=== PATIENT | male | born 1955 | race Caucasian/White ===

== ENCOUNTER → 2017-11-04 08:38 | Outpatient (CLI) | payer BC, SELFPAY ==
[2017-11-04 10:58] LABS: Anion Gap 9 (5-15); BUN 18 mg/dL (7-18); BUN/Creat Ratio 30.5 RATIO (10-20); Calcium,Total 8.6 mg/dL (8.5-10.1); Chloride 107 mmol/L (98-107); Creatinine, Serum 0.59 mg/dL (0.70-1.30); EST Glomerular Filtration Rate 148 mL/min (>60); Est Glom Filt Rate - Afr Amer 179 mL/min (>60); Glucose 101 mg/dL (74-106); Potassium 3.7 mmol/L (3.5-5.1); Sodium Level 140 mmol/L (136-145)
== END ==
PROVIDERS: Family Provider Family Medicine; PCP Family Medicine; Visit Provider Family Medicine
DX: I10 Essential (primary) hypertension (principal)
CPT/HCPCS: 36415; 80048

== ENCOUNTER → 2017-11-18 12:13 | Outpatient (CLI) | payer BC, SELFPAY | PROVIDERS: Family Provider Family Medicine; PCP Family Medicine; Visit Provider Podiatrist | DX: L97.512 Non-pressure chronic ulcer of other part of right foot with fat layer exposed (principal) | CPT/HCPCS: 87070; 87205 ==

== ENCOUNTER 2018-03-09 08:43 | Outpatient (RCR) | payer OTHER, SELFPAY ==
[2018-03-09 09:28] VITALS: BP 141/85; PULSE 69; RESP 18; TEMP 36.7; BMI 36.6
--- NOTE | 2018-03-09 13:48 | PCM.WC.HP ---
(1) Ulcer of right foot Status: Acute Current Visit: Yes Code(s): L97.519 - Non-pressure chronic ulcer of other part of right foot with unspecified severity (2) Idiopathic neuropathy Status: Acute Current Visit: Yes Code(s): G60.9 - Hereditary and idiopathic neuropathy, unspecified (3) Obesity Status: Acute Current Visit: Yes Code(s): E66.9 - Obesity, unspecified (4) Delayed wound healing Status: Acute Current Visit: Yes Code(s): T14.8XXD - Other injury of unspecified body region, subsequent encounter History of Present Illness Date of Service: 03/09/18 Chief Complaint: ulcer to right plantar hallux History of Wound: This 62-year-old male was referred to the wound healing center by Dr. Rivera for an ongoing ulcer to the right plantar hallux. He says he has been treated with offloading surgical shoes as well as offloading custom orthotics and daily Josette dressings. He says that he has noticed improvement each day and feels that the ulcer may actually be healed today. Patient said he Ardee had the appointment scheduled and figured that he might as well, and have the area checked out just in case. He denies any purulence to the area as well as any redness, swelling, or increase in warmth. The patient currently denies any feelings of nausea, vomiting, fever, chills. Past Medical History Surgical History: tonsillectomy Allergies/Adverse Reactions: Allergies No Known Allergies Allergy (Verified 10/05/15 10:22) Home Medications: Ambulatory Orders Medication Instructions Recorded Multivitamin [Daily Multiple 1 each PO DAILY 10/05/15 Vitamin] Aspirin E.C. [Ecotrin] 81 mg PO DAILY@0800 03/09/18 Cholecalciferol (Vitamin D3) 1,000 unit PO DAILY 03/09/18 [Vitamin D3] Lisinopril/Hydrochlorothiazide 1 each PO DAILY 03/09/18 [Zestoretic 20-25 mg Tablet] Metoprolol Tartrate 25 mg PO BID 03/09/18 - Family History Sibling No pertinent history Maternal Diabetes, Heart Disease - age 74 Paternal Heart Disease - age 83 Smoking Status: Former smoker Review of Systems Constitutional: Denies: Chills, Fever, Weight Change HEENT: Denies: Difficulty Hearing, Difficulty Swallowing, Sinus Congestion Cardiovascular: Denies: Chest Pain, Palpitations Respiratory: Denies: Cough, Shortness of Breath Gastrointestinal: Denies: Diarrhea, Nausea, Vomiting Neurological: Reports: Numbness - Physical Exam Vital Signs Temp Pulse Resp BP 98.0 F 69 18 141/85 H 03/09/18 09:28 03/09/18 09:28 03/09/18 09:28 03/09/18 09:28 General: Alert, Oriented x3, Cooperative, No apparent distress Extremities: No cyanosis, Capillary Refill Less than 3 Seconds, No Calf Tenderness - Negative Siomara and Ibarra sign, Diminished Peripheral Pulses - DP pulses palpable and PT pulses nonpalpable, Edema - Very slight lower extremity edema, - - Lower extremity varicosities noted Skin: Ulcer/ Wound - Hyperkeratotic tissue appreciated the right plantar hallux. Upon debridement, there is no open ulcer appreciated at this time. There is no surrounding cellulitis, increasing warmth, or any other signs or symptoms of local bacterial infection appreciated at this time. Currently the site appears healed. Wound Measurements and Assessment WC - Nurse 1 - General Ulcer Measurement Start: 03/09/18 09:19 Freq: Status: Active Protocol: Activity Type Activity Date Activity User E-Sign Co-Sign Detail Recorded Client Recorded Date Recorded By Document 03/09/18 09:28 [id number] 03/09/18 09:58 03/09/18 09:28 Wound Center Nurse 1 [Ulcer Assessment] #3 right plantar great toe -Combined with other wound No -Current Size (cm) - Length 0.1 -Current Size (cm) - Width 0.1 -Current Size (cm) - Depth 0.1 -Total Square Cm 0.01 -Date of Last Picture (Recall this 03/09/18 field) -Photo Taken Yes -Epithelialization Large 67-100% -Tunneling No -Undermining/Tunneling No -Circular Undermining No -Classification - Thickness Partial Thickness -Exudate Amt None Present (0 %) -Wound Margin Distinct, Outline Attached -Granulation Amt Large (67-100%) -Granulation Quality Pale [place] -Slough/Fibrin No -Necrosis Amt None Present (0 %) -Structure Exposed None/Limited to Skin Breakdown -Texture (Roz-wound Skin Appearance) Assessed Callus Scarring -Moisture (Roz-wound Skin Appearance Assessed ) Dry/Scaly -Color (Roz-wound Skin Appearance) No Abnormality Assessed -Temperature (Roz-wound Skin No Abnormality Appearance) (Pt Warm) -Tenderness on Palpation (Roz-wound No Skin Appearance) -Ulcer Cleansing Rinsed/ Irrigated with Saline -Foul Odor after Cleansing No -Anesthetic Used 5% Lidocaine Gel [Edema Assessment] -Lower Limb Edema Present Yes -Right Calf (cm) 35.5 -Right Ankle (cm) 24.0 -Left Calf (cm) 34.0 -Left Ankle (cm) 22.5 - Nurse 2 - General Ulcer CM Notes Start: 03/09/18 09:19 Freq: Status: Active Protocol: Activity Type Activity Date Activity User E-Sign Co-Sign Detail Recorded Client Recorded Date Recorded By Document 03/09/18 10:38 [id number] 03/09/18 10:45 03/09/18 10:38 Wound Center Nurse 2 [Procedure/Treatment] #3 right plantar great toe -Time 10:38 -Correct Patient Yes -Correct Side, Site, Position Yes -Correct Procedure Yes -Procedure Performed Yes -Type of Procedure Debridement -Clinical Debridement Subcutaneous -Post Debridement Size (cm) - Length 0 -Post Debridement Size (cm) - Width 0 -Post Debridement Size (cm) - Depth 0 -Total Square Cm 0 -Wound/Ulcer Outcome Healed- Epithelialized [See Physician Procedure note for Specifics] Pain Scale: 0-10 Numeric [Pain] -Is Patient Pain Free? Yes Musculoskeletal: - - Previous right second toe amputation. Hammertoe deformities to bilateral digits 2 through 5. Bilateral hallux malleus. Neurological: - - Epicritic sensation grossly absent to lower extremity. Psych/Mental Status: Normal Affect, Appropriate Debridement Note Post-Debridement Measurements/Treatment - Nurse 2 - General Ulcer CM Notes Start: 03/09/18 09:19 Freq: Status: Active Protocol: Activity Type Activity Date Activity User E-Sign Co-Sign Detail Recorded Client Recorded Date Recorded By Document 03/09/18 10:38 [id number] 03/09/18 10:45 03/09/18 10:38 Wound Center Nurse 2 #3 right plantar great toe -Time 10:38 -Correct Patient Yes -Correct Side, Site, Position Yes -Correct Procedure Yes -Procedure Performed Yes -Type of Procedure Debridement -Clinical Debridement Subcutaneous -Post Debridement Size (cm) - Length 0 -Post Debridement Size (cm) - Width 0 -Post Debridement Size (cm) - Depth 0 -Total Square Cm 0 -Wound/Ulcer Outcome Healed- Epithelialized Pain Scale: 0-10 Numeric Is Patient Pain Free? Yes No debridement was completed today Assessment/Plan Active Problems Idiopathic neuropathy (Acute) Ulcer of right foot (Acute) Obesity (Acute) Delayed wound healing (Acute) Plan: Initial patient examination and evaluation was performed. A mild non-excisional debridement was completed at the hyperkeratotic tissue to the right plantar hallux. Upon debridement there is no ulcer appreciated or any other signs of infection noted. Patient currently appears to be healed at this time. Patient was instructed to continue wearing his offloading orthotics to keep pressure off of the area of previous ulcer. The importance of keeping pressure off of these areas was again stressed, especially because the patient has some idiopathic neuropathy. Patient was instructed and educated on the importance of daily foot checks due to his neuropathy, in order to catch any issues with his feet as soon as possible. At this time, the patient will be discharged from the wound healing center, but was instructed to call the office should any issues arise.
== END 2018-03-10 23:59 ==
LOC: WC 08:43
PROVIDERS: Family Provider Family Medicine; PCP Family Medicine; Visit Provider Podiatrist
DX: Z09 Encounter for follow-up examination after completed treatment for conditions other than malignant neoplasm (principal); L85.9 Epidermal thickening, unspecified; E66.9 Obesity, unspecified; Z68.36 Body mass index [BMI] 36.0-36.9, adult; Z71.3 Dietary counseling and surveillance; G60.9 Hereditary and idiopathic neuropathy, unspecified; M20.42 Other hammer toe(s) (acquired), left foot; M20.41 Other hammer toe(s) (acquired), right foot; Z87.891 Personal history of nicotine dependence; R09.89 Other specified symptoms and signs involving the circulatory and respiratory systems; I83.93 Asymptomatic varicose veins of bilateral lower extremities
CPT/HCPCS: 11042; 99212; G0463

== ENCOUNTER → 2018-05-12 11:00 | Outpatient (CLI) | payer OTHER, SELFPAY ==
[2018-05-12 12:47] LABS: Anion Gap 7 (5-15); BUN 23 mg/dL (7-18); BUN/Creat Ratio 30.7 RATIO (10-20); Calcium,Total 8.8 mg/dL (8.5-10.1); Chloride 105 mmol/L (98-107); Cholesterol 165 mg/dL (200); Creatinine, Serum 0.75 mg/dL (0.70-1.30); EST Glomerular Filtration Rate 112 mL/min (>60); Est Glom Filt Rate - Afr Amer 136 mL/min (>60); Glucose 98 mg/dL (74-106); High Density Lipoprotein 34 mg/dL; Potassium 3.8 mmol/L (3.5-5.1); Sodium Level 139 mmol/L (136-145); Triglycerides 192 mg/dL; Very Low Density Lipoprotein 38 mg/dL (5-40)
== END ==
PROVIDERS: Family Provider Family Medicine; PCP Family Medicine; Visit Provider Family Medicine
DX: I10 Essential (primary) hypertension (principal)
CPT/HCPCS: 36415; 80048; 80061

== ENCOUNTER → 2018-11-09 | Outpatient (CLI) | payer OTHER, SELFPAY ==
[2018-11-09 10:39] LABS: Anion Gap 4 (5-15); BUN 20 mg/dL (7-18); BUN/Creat Ratio 29.6 RATIO (10-20); Calcium,Total 8.8 mg/dL (8.5-10.1); Chloride 102 mmol/L (98-107); Cholesterol 192 mg/dL (200); Creatinine, Serum 0.68 mg/dL (0.70-1.30); EST Glomerular Filtration Rate 126 mL/min (>60); Est Glom Filt Rate - Afr Amer 153 mL/min (>60); Glucose 86 mg/dL (74-106); High Density Lipoprotein 39 mg/dL; Sodium Level 137 mmol/L (136-145); Triglycerides 143 mg/dL; Very Low Density Lipoprotein 29 mg/dL (5-40)
== END | disposition home or self-care (01) ==
LOC: MFPLAB 09:10
PROVIDERS: Family Provider Family Medicine; PCP Family Medicine; Referring Provider Family Medicine; Visit Provider Family Medicine
DX: I10 Essential (primary) hypertension (principal)
CPT/HCPCS: 36415; 80048; 80061

== ENCOUNTER → 2019-05-14 09:01 | Outpatient (CLI) | payer OTHER, SELFPAY ==
[2019-05-14 11:01] LABS: Anion Gap 7 (5-15); BUN 27 mg/dL (7-18); BUN/Creat Ratio 38.6 RATIO (10-20); Calcium,Total 8.8 mg/dL (8.5-10.1); Chloride 103 mmol/L (98-107); EST Glomerular Filtration Rate 121 mL/min (>60); Est Glom Filt Rate - Afr Amer 147 mL/min (>60); Glucose 100 mg/dL (74-106); Potassium 3.8 mmol/L (3.5-5.1); Sodium Level 136 mmol/L (136-145)
== END ==
PROVIDERS: Family Provider Family Medicine; PCP Family Medicine; Visit Provider Family Medicine
DX: I10 Essential (primary) hypertension (principal); E66.9 Obesity, unspecified
CPT/HCPCS: 36415; 80048; 84403

== ENCOUNTER → 2019-08-15 09:01 | Outpatient (CLI) | payer OTHER, SELFPAY ==
[2019-08-15 10:29] LABS: Cholesterol 168 mg/dL (200); High Density Lipoprotein 38 mg/dL; Triglycerides 91 mg/dL; Very Low Density Lipoprotein 18 mg/dL (5-40)
== END ==
PROVIDERS: PCP Family Medicine; Referring Provider Family Medicine; Visit Provider Family Medicine
DX: I10 Essential (primary) hypertension (principal)
CPT/HCPCS: 36415; 80061

== ENCOUNTER → 2020-02-13 08:45 | Outpatient (CLI) | payer OTHER, SELFPAY ==
[2020-02-13 10:28] LABS: Anion Gap 6 (5-15); BUN 41 mg/dL (7-18); Calcium,Total 8.9 mg/dL (8.5-10.1); Chloride 106 mmol/L (98-107); EST Glomerular Filtration Rate 80 mL/min (>60); Est Glom Filt Rate - Afr Amer 97 mL/min (>60); Glucose 105 mg/dL (74-106); Potassium 4.1 mmol/L (3.5-5.1); Sodium Level 139 mmol/L (136-145)
== END ==
PROVIDERS: PCP Family Medicine; Referring Provider Family Medicine; Visit Provider Family Medicine
DX: I10 Essential (primary) hypertension (principal)
CPT/HCPCS: 36415; 80048

== ENCOUNTER → 2020-03-21 | Outpatient (CLI) | payer OTHER, SELFPAY | END | disposition home or self-care (01) | PROVIDERS: PCP Family Medicine; Referring Provider Family Medicine; Visit Provider Family Medicine | DX: R50.9 Fever, unspecified (principal) | CPT/HCPCS: 87635; U0003 ==

== ENCOUNTER → 2020-08-13 08:48 | Outpatient (CLI) | payer OTHER, SELFPAY ==
[2020-08-13 11:35] LABS: Anion Gap 8 (5-15); BUN 34 mg/dL (7-18); BUN/Creat Ratio 41.1 RATIO (10-20); Calcium,Total 9.3 mg/dL (8.5-10.1); Chloride 106 mmol/L (98-107); Cholesterol 193 mg/dL (200); Creatinine, Serum 0.83 mg/dL (0.70-1.30); EST Glomerular Filtration Rate 99 mL/min (>60); Est Glom Filt Rate - Afr Amer 120 mL/min (>60); Glucose 96 mg/dL (74-106); High Density Lipoprotein 41 mg/dL; Potassium 4.2 mmol/L (3.5-5.1); Sodium Level 138 mmol/L (136-145); Triglycerides 108 mg/dL; Very Low Density Lipoprotein 22 mg/dL (5-40)
== END ==
PROVIDERS: PCP Family Medicine; Referring Provider Family Medicine; Visit Provider Family Medicine
DX: I10 Essential (primary) hypertension (principal)
CPT/HCPCS: 36415; 80048; 80061

== ENCOUNTER 2020-11-05 10:30 | Outpatient (RCR) | payer OTHER, SELFPAY ==
[2020-10-15 10:15] VITALS: BP 149/81; PULSE 72; RESP 18; TEMP 36.7; BMI 35.9
[2020-10-15 11:18] VITALS: BP 150/80
--- NOTE | 2020-10-15 11:30 | HP.PCM_ITS ---
(1) Ulcer of right foot with fat layer exposed Status: Chronic Code(s): L97.512 - Non-pressure chronic ulcer of other part of right foot with fat layer exposed (2) Idiopathic neuropathy Status: Chronic Code(s): G60.9 - Hereditary and idiopathic neuropathy, unspecified (3) Delayed wound healing Status: Chronic Code(s): T14.8XXD - Other injury of unspecified body region, subsequent encounter History of Present Illness Date of Service: 10/15/20 Chief Complaint: ulcer to right plantar hallux History of Wound: This 62-year-old male was referred to the wound healing center by Dr. Rivera for an ongoing ulcer to the right foot. He says he has been treated with offloading surgical shoes as well as offloading custom orthotics and daily Josette dressings. He says that he has noticed improvement each day and feels that the ulcer may actually be healed today. He denies any purulence to the area as well as any redness, swelling, or increase in warmth. The patient currently denies any feelings of nausea, vomiting, fever, chills. He denies recent trauma or injury. Past Medical History Past Medical History: Chronic Problems Idiopathic neuropathy (Chronic) Delayed wound healing (Chronic) Ulcer of right foot with fat layer exposed (Chronic) Surgical History: tonsillectomy Allergies/Adverse Reactions: Allergies No Known Allergies Allergy (Verified 10/05/15 10:22) Home Medications: Ambulatory Orders Medication Instructions Recorded Multivitamin [Daily Multiple 1 each PO DAILY 10/05/15 Vitamin] Aspirin E.C. [Ecotrin] 81 mg PO DAILY@0800 03/09/18 Cholecalciferol (Vitamin D3) 1,000 unit PO DAILY 03/09/18 [Vitamin D3] Lisinopril/Hydrochlorothiazide 1 each PO DAILY 03/09/18 [Zestoretic 20-25 mg Tablet] Metoprolol Tartrate 25 mg PO BID 03/09/18 - Family History Sibling No pertinent history Maternal Diabetes, Heart Disease - age 74 Paternal Heart Disease - age 83 Smoking Status: Never smoker Review of Systems Constitutional: Denies: Chills, Fever Cardiovascular: Denies: Chest Pain, Claudication Gastrointestinal: Denies: Nausea, Vomiting Skin: Reports: Skin Changes, Wounds Neurological: Reports: Numbness Hematologic/ Lymphatic: Denies: Easy Bruising, Easy Bleeding, Hx of blood clot - Physical Exam Vital Signs Temp Pulse Resp BP 98.1 F 72 18 150/80 H 10/15/20 10:15 10/15/20 10:15 10/15/20 10:15 10/15/20 11:18 General: Alert, Oriented x3, Cooperative, No apparent distress HEENT: Atraumatic Extremities: No cyanosis, Capillary Refill Less than 3 Seconds, No Calf Tenderness, Diminished Peripheral Pulses, Edema - Mild Skin: Ulcer/ Wound - No purulence, erythema, streaking, odor, infection. No probing to deep structures. The adjacent skin is hairless and atrophic. Wound Measurements and Assessment WC - Nurse 1 - General Ulcer Measurement Start: 10/15/20 10:14 Freq: Status: Active Protocol: Activity Type Activity Date Activity User E-Sign Co-Sign Detail Recorded Client Recorded Date Recorded By Document 10/15/20 10:15 RB [id number] 10/15/20 10:29 RB 10/15/20 10:15 Wound Center Nurse 1 [Ulcer Assessment] 4. R foot plantar -Combined with other wound No -Current Size (cm) - Length 0.2 -Current Size (cm) - Width 0.2 -Current Size (cm) - Depth 0.5 -Total Square Cm 0.04 -Photo Taken Yes -Tunneling No -Undermining/Tunneling No -Circular Undermining No -Exudate Amt Small -Exudate Type Serosanguineous -Wound Margin Thickened -Granulation Amt Medium (34-66%) -Granulation Quality [place] -Slough/Fibrin Yes -Necrosis Amt Small (1-33%) -Necrotic Tissue Type Adherent Slough -Structure Exposed N/A -Texture (Roz-wound Skin Appearance) Assessed,Callus -Moisture (Roz-wound Skin Appearance Assessed ) -Color (Roz-wound Skin Appearance) Assessed -Temperature (Roz-wound Skin No Abnormality Appearance) (Pt Warm) -Tenderness on Palpation (Roz-wound No Skin Appearance) -Ulcer Cleansing Wound Cleanser -Foul Odor after Cleansing No -Anesthetic Used 5% Lidocaine Gel [Edema Assessment] -Lower Limb Edema Present Yes -Right Calf (cm) 33.5 -Right Ankle (cm) 24 -Left Calf (cm) 33 -Left Ankle (cm) 23 WC - Nurse 2 - General Ulcer CM Notes Start: 10/15/20 10:14 Freq: Status: Active Protocol: Activity Type Activity Date Activity User E-Sign Co-Sign Detail Recorded Client Recorded Date Recorded By Document 10/15/20 10:43 [id number] 10/15/20 10:55 [email or web address] 10/15/20 10:43 Wound Center Nurse 2 [Procedure/Treatment] 4. R foot plantar -Time 10:44 -Correct Patient Yes -Correct Side, Site, Position Yes -Correct Procedure Yes -Procedure Performed Yes -Type of Procedure Debridement -Clinical Debridement Subcutaneous -Tissue Removed Subcutaneous -Post Debridement (cm) - Length 0.5 -Post Debridement (cm) - Width 0.7 -Post Debridement (cm) - Depth 0.4 -Total Square (Post) (cm) 0.35 -Area of Debridement (cm) - Length 0.5 -Area of Debridement (cm) - Width 0.7 -Total Square (Area) (cm) 0.35 -Tunneling No -Undermining/Tunneling No -Circular Undermining No -Wound/Ulcer Outcome Not Healed -Ulcer Cleansing Rinsed/ Irrigated with Saline -Foul Odor after Cleansing No -Bioengineered Tissue No -Bleeding Controlled with Pressure -Offloading Yes -Type of Offloading Surgical Shoe -Treatment Response Procedure Tolerated Well -Debridement - Subq, 1st 20sq cm Yes [See Physician Procedure note for Specifics] Pain Scale: 0-10 Numeric [Pain] -Is Patient Pain Free? Yes WC - Nurse 3 - General Ulcer D/C NN Start: 10/15/20 10:14 Freq: Status: Active Protocol: Activity Type Activity Date Activity User E-Sign Co-Sign Detail Recorded Client Recorded Date Recorded By Document 10/15/20 11:18 [id number] 10/15/20 11:19 RB 10/15/20 11:18 Wound Care Nurse 3 [Wound Dressing] 4. R foot plantar -Primary Dressing Applied Promogran Josette Matter -Primary Dressing Covered/Secured Dry Gauze, with Secured with Tape -Promogran Josette Matter 1 [Compression Applied] Right -Lotion applied to leg before No compression wrap -Tubular Bandage Single Layer -Size of Tubigrip Used Size E -Size E ($) 1 [Post Procedure Tolerated] -Treatment Response Procedure Tolerated Well Vital Signs [Blood Pressure] -Blood Pressure (90/60-120/80) 150/80 H -Blood Pressure Mean (mm Hg) 103 -Source Monitor -Position Sitting -Blood Pressure Location Left Arm Pain Scale: 0-10 Numeric [Pain] -Is Patient Pain Free? Yes Teaching: Wound Center [Wound Center Education] (Items with an * have Printed Materials Available- Please identify what is given to patient under the Teaching materials given to patient and caregiver Section. Dressing Your Wound -Person Taught Patient -Teaching Method Discussion, Demonstration -Response to teaching Verbalize understanding WC - Visit Discharge [Visit Discharge Information] -Discharge Condition Stable -Ambulatory Status Ambulatory -Transportation Private Auto -Medication Reconcilliation completed No & provided to patient/care provider -Clinical Summary of Care Provided Yes Musculoskeletal: Muscle Wasting, - - Decreased noted first metatarsophalangeal joint range of motion. No crepitus on palpation. Compartments remain soft to palpate. Neurological: - - Lack of epicritic sensation is consistent with neuropathic status Psych/Mental Status: Normal Affect, Appropriate Debridement Note Post-Debridement Measurements/Treatment - Nurse 2 - General Ulcer CM Notes Start: 10/15/20 10:14 Freq: Status: Active Protocol: Activity Type Activity Date Activity User E-Sign Co-Sign Detail Recorded Client Recorded Date Recorded By Document 10/15/20 10:43 [email or web address] [id number] 10/15/20 10:55 [email or web address] 10/15/20 10:43 Wound Center Nurse 2 4. R foot plantar -Time 10:44 -Correct Patient Yes -Correct Side, Site, Position Yes -Correct Procedure Yes -Procedure Performed Yes -Type of Procedure Debridement -Clinical Debridement Subcutaneous -Tissue Removed Subcutaneous -Post Debridement (cm) - Length 0.5 -Post Debridement (cm) - Width 0.7 -Post Debridement (cm) - Depth 0.4 -Total Square (Post) (cm) 0.35 -Area of Debridement (cm) - Length 0.5 -Area of Debridement (cm) - Width 0.7 -Total Square (Area) (cm) 0.35 -Tunneling No -Undermining/Tunneling No -Circular Undermining No -Wound/Ulcer Outcome Not Healed -Ulcer Cleansing Rinsed/ Irrigated with Saline -Foul Odor after Cleansing No -Bioengineered Tissue No -Bleeding Controlled with Pressure -Offloading Yes -Type of Offloading Surgical Shoe -Treatment Response Procedure Tolerated Well -Debridement - Subq, 1st 20sq cm Yes Pain Scale: 0-10 Numeric Is Patient Pain Free? Yes - Nurse 3 - General Ulcer D/C NN Start: 10/15/20 10:14 Freq: Status: Active Protocol: Activity Type Activity Date Activity User E-Sign Co-Sign Detail Recorded Client Recorded Date Recorded By Document 10/15/20 11:18 RB [id number] 10/15/20 11:19 RB 10/15/20 11:18 Wound Care Nurse 3 4. R foot plantar -Primary Dressing Applied Promogran Josette Matter -Primary Dressing Covered/Secured with Dry Gauze, Secured with Tape -Promogran Josette Matter 1 Right -Lotion applied to leg before No compression wrap -Tubular Bandage Single Layer -Size of Tubigrip Used Size E -Size E ($) 1 Treatment Response Procedure Tolerated Well Vital Signs Blood Pressure (90/60-120/80) 150/80 H Blood Pressure Mean (mm Hg) 103 Source Monitor Position Sitting Blood Pressure Location Left Arm Pain Scale: 0-10 Numeric Is Patient Pain Free? Yes Teaching: Wound Center Dressing Your Wound -Person Taught Patient -Teaching Method Discussion, Demonstration -Response to teaching Verbalize understanding WC - Visit Discharge Discharge Condition Stable Ambulatory Status Ambulatory Transportation Private Auto Medication Reconcilliation completed & No provided to patient/care provider Clinical Summary of Care Provided Yes Wound debrided: sub 1st metatarsal head Laterality: Right Wound Grade/Stage: grade 1 Type of Debridement: Excisional debridement Anesthesia Used: 5% Lidocaine Gel Depth: in the subcutaneous layer Instrument Used: #15 blade Tissue Removed: fibrous, devitalized subcutaneous, biofilm, slough Severity: Fat Layer Exposed Amount of bleeding with debridement: Mild Bleeding Controlled with: Pressure Patient tolerated procedure well Assessment/Plan Active Problems Idiopathic neuropathy (Chronic) Delayed wound healing (Chronic) Ulcer of right foot with fat layer exposed (Chronic) Assessment: Right foot ulcer with fat layer exposed. Hallux limitus. Vascular insufficiency work-up in process Plan: Initial patient examination and evaluation was performed. Reviewed the ordered diagnostic data after clinic. Subcutaneous excisional debridement was performed as noted in the clinical panel. upon debridement there is no ulcer appreciated or any other signs of infection noted. Patient was instructed to continue wearing his offloading cam walker boot instead of offloading insoles or surgical shoe to take additional pressure off of this site. A prescription was provided to obtain this at the foot and ankle center. Additional dual density Plastizote offloading liners with a pocket at the ulcer site will be incorporated. The importance of keeping pressure off of these areas was again stressed, especially because the patient has some idiopathic neuropathy. Patient was instructed and educated on the importance of daily foot checks due to his neuropathy, in order to catch any issues with his feet as soon as possible. To change the dressing daily as he has been doing. To wash with soap and water. X-rays were ordered and reviewed without any osseous destruction or acute fracture dislocation adjacent to the ulcer site. No soft tissue emphysema is noted. There is foreign body of a thin metallic object which does not appear to be deep in the forefoot and is proximal to the clinical area of the ulcer location. His labs were also reviewed which did not demonstrate any gross CMP abnormalities. He did not have leukocytosis and his white blood cell count was 7.9. His A1c was 5.2% and it does not appear that he has diabetes. I also provided an order for noninvasive vascular studies for screening due to recurrent nature of this ulcer. I also recommend Tubigrip application for mild edema management. Importance of well-balanced proper nutrition and supplementation was also advised to optimize healing. I recommend Maurilio supplementation. I answered all his questions. He will return to clinic in 1 week or call sooner if he has any questions or concerns. Note: Document Agility speech recognition bat carrier software was used to create portions of this document. Sound-alike and misspelled words, as well as other bat carrier errors may be contained in the documentation. The medical decision making level is moderate based on data including at least three of the following: review of prior external notes, review of a test, ordering a test, assessment requiring an independent historian. The medical decision making level is moderate based on data including independent interpretation of a test performed by another qualified health healthcare network pricing consultant. The medical decision making level is moderate. There is noted moderate risk of morbidity after considering this treatment plan and diagnostic data. Considerations were given to prescription management, decisions regarding surgical options, or social determinants of health.
--- NOTE | 2020-10-15 11:50 | RAD_ITS ---
INDICATION: CHRONIC ULCER EXAMINATION/TECHNIQUE: X-RAY - RIGHT XR Foot Min 3 Views COMPARISON: 10/05/2015. FINDINGS: There is a plantar calcaneal spur. There is pes planus. Moderate degenerative changes are seen within the midfoot. There is degenerative arthrosis of the interphalangeal joint of the great toe. Status post partial second toe amputation. No erosions. There is a 2-3 mm metallic density within the plantar soft tissues beneath the first metatarsal, suggesting a retained foreign body. RAD/Foot min 3 Views IMPRESSION: Status post partial second toe amputation. No erosive changes. 2-3 mm retained soft tissue foreign body along the plantar aspect of the foot. Degenerative changes, as described above. Electronically Signed: Billy Morocho MD at 20:06 EDT Tel , Service support ,
[2020-10-15 11:53] LABS: Absolute Lymphocyte Count 1.37 X10^3/uL (0.83-4.51); Absolute Neutrophil Count 5.3 X10^3/uL (2.0-7.7); Basophil# 0.03 X10^3/uL; Basophil% 0.4 % (0-1); Eosinophil# 0.41 X10^3/uL; Eosinophils% 5.2 % (0-5); Hematocrit 43.6 % (40-54); Hemoglobin 14.3 g/dL (13.0-16.5); Lymphocyte # 1.37 X10^3/ul (4.0); Lymphocyte % 17.4 % (19-41); Mean Corp Hgb Conc 32.8 g/dL (32-36); Mean Corpuscular Hgb 31.8 pg (27.0-32.0); Mean Corpuscular Volume 96.9 fL (80-94); Mean Platelet Vol. 9.9 fl (6.2-12.0); Monocyte# 0.75 X10^3/uL; Monocyte% 9.5 % (0-10); NRBC Flagged by Analyzer 0 % (0-5); Neutrophil # 5.28 X10^3/uL (2.7-7.7); Platelet Count 216 K/mm3 (150-450); RBC Distribution Width CV 12.8 % (11.6-14.6); RBC Distribution Width SD 45.3 fl (35.1-43.9); White Blood Count 7.9 K/mm3 (4.4-11.0)
[2020-10-15 12:30] LABS: AST(SGOT) 21 U/L (15-37); Alanine Aminotransfer ALT/SGPT 38 U/L (16-61); Albumin, Serum 3.6 g/dL (3.2-5.0); Alkaline Phosphatase 70 U/L (45-117); Anion Gap 2 (5-15); BUN 26 mg/dL (7-18); BUN/Creat Ratio 34.3 RATIO (10-20); Calcium,Total 8.9 mg/dL (8.5-10.1); Chloride 106 mmol/L (98-107); Creatinine, Serum 0.76 mg/dL (0.70-1.30); EST Glomerular Filtration Rate 110 mL/min (>60); Est Glom Filt Rate - Afr Amer 133 mL/min (>60); Estimated Creatinine Clearance 101.39 ml/min; Globulin 3.7 g/dL (2.2-4.2); Glucose 105 mg/dL (74-106); Protein, Total 7.3 g/dL (6.4-8.2); Sodium Level 137 mmol/L (136-145)
[2020-10-15 12:45] LABS: Hemoglobin A1c 5.2 % (3.8-5.6)
--- NOTE | 2020-10-27 12:39 | ART_ITS ---
Procedure A bilateral lower extremity continuous wave Doppler with analog waveform analysis,segmental pressures,and ankle brachial indexes without exercise. Left Segmental Pressures Left brachial= 132mmHg. Left posterior tibial artery = 157mmHg. Left dorsalis pedis artery = 154mmHg. Left digit = 93 mmHg. The left dorsalis pedis waveforms are triphasic. The left posterior tibial artery waveforms are triphasic. Right Segmental Pressures Right brachial= 143mmHg. Right posterior tibial artery = 148mmHg. Right dorsalis pedis artery = 146mmHg. Right digit = 99 mmHg. The right dorsalis pedis waveforms are triphasic. The right posterior tibial artery waveforms are triphasic. Indices The right ankle brachial index by the dorsalis pedis is 1.02. The right ankle brachial index by the posterior tibial artery is 1.03. The right digital-brachial index is 0.69. The left ankle brachial index by the dorsalis pedis is 1.08. The left ankle brachial index by the posterior tibial artery is 1.10. The left digital-brachial index is 0.65. VL/Lower Ext Art Exam w/o Exercis Interpretation Summary Triphasic Doppler waveforms are noted at ankle level bilaterally. Pulse-volume recordings appear satisfactory at all levels bilaterally. Resting ankle-brachial indices are norm al biaterally. Digital-brachial indices are mildly diminished bilaterally. Arterial flow appears normal at ankle level bilaterally. There is evidence of m ild, distal, small- vessel arterial occlusive disease in the lower extremities bilaterally. Ordering Physician: Carolina Roblero Referring Physician: Obey Wagner Performed By: Bernadette Pitts RVT
--- NOTE | 2020-10-27 12:39 | VDLE_ITS ---
Reason For Study: Venous insufficiency RIGHT LEFT CFV is compressible, spontaneous, phasic, CFV is compressible, spontaneous, phasic, competent and demonstrates normal competent, and demonstrates normal augmentation. augmentation. FV is compressible, spontaneous, phasic, FV is compressible, spontaneous, phasic, competent and demonstrates normal competent and demonstrates normal augmentation. augmentation. POP V is compressible, spontaneous, phasic, POP V is compressible, spontaneous, phasic, competent and demonstrates normal competent and demonstrates normal augmentation. augmentation. T/P Trunk is compressible. T/P Trunk is compressible. PTV is compressible. PTV is compressible. RT PerV is compressible. LT PerV is compressible. SFJ is competent and measures 0.85 x 0.89 cm. SFJ is competent and measures 1.00 x 0.92 cm. GSV proximal thigh measures 0.42 x 0.42 cm. GSV proximal thigh measures 0.29 x 0.29 cm. GSV above knee is competent. GSV at knee measures 0.39 x 0.40 cm. GSV at knee measures 0.61 x 0.67 cm. GSV is competent throughout. GSV below knee is INCOMPETENT for greater ASV mid calf is INCOMPETENT for greater than than 0.5 seconds. 0.5 seconds and measures 0.17 x 0.19 cm. SSV proximal calf is competent and measures SSV at junction is INCOMPETENT for greater 0.16 x 0.16 cm. than 0.5 seconds and measures 0.42 x 0.44 cm. INCOMPETENT team assistant noted 19 cm above medial malleolus. Procedure This is a venous duplex using B-mode, color flow and spectral Doppler. Exam performed in department. Patient was scanned in reverse Trendelenburg position during reflux assessment. A preliminary report was called and/or faxed to . VL/Venous Duplex US - Sebastian Extrem Interpretation Summary Deep veins of the lower extremities are bilaterally patent and compressible seg mentally. There is no evidence of deep vein thrombosis on either side. Valvular competence appears in tact within the proximal deep venous systems bilaterally. The great saphenous veins appear bila terally patent and compressible segmentally. Sapheno-femoral junctions are bilaterally competent . The right great saphenous vein appears competent above the knee. The right great saphenous vein appears incompetent below the knee. The left great saphenous vein appears segmentally competent. Th e right small saphenous vein is patent and competent. The left small saphenous vein is patent and incompetent. An incompetent team assistant vein is noted in the right calf, located 19 centimeters proximal to the medial malleolus. The left accessory saphenous vein in the left mid-calf is inc ompetent. Ordering Physician: Carolina Roblero Referring Physician: Obey Wagner Performed By: Bernadette Pitts RVT
[2020-10-29 10:54] VITALS: BP 145/72; PULSE 69; RESP 18; TEMP 36.6; BMI 35.9
--- NOTE | 2020-10-29 11:16 | PCM.WC.PN ---
(1) Ulcer of right foot with fat layer exposed Status: Chronic Code(s): L97.512 - Non-pressure chronic ulcer of other part of right foot with fat layer exposed (2) Idiopathic neuropathy Status: Chronic Code(s): G60.9 - Hereditary and idiopathic neuropathy, unspecified (3) Delayed wound healing Status: Chronic Code(s): T14.8XXD - Other injury of unspecified body region, subsequent encounter Type of Wound Date of Service: 10/29/20 Chief Complaint: ulcer to right plantar hallux History of Wound: This 62-year-old male was referred to the wound healing center by Dr. Rivera for an ongoing ulcer to the right foot. He says he has been treated with offloading surgical shoes as well as offloading custom orthotics and daily Josette dressings. He says that he has noticed improvement each day and feels that the ulcer may actually be healed today. He denies any purulence to the area as well as any redness, swelling, or increase in warmth. The patient currently denies any feelings of nausea, vomiting, fever, chills. Progress of Wound: improving - Physical Exam Vital Signs Temp Pulse Resp BP 98 F 69 18 145/72 H 10/29/20 10:54 10/29/20 10:54 10/29/20 10:54 10/29/20 10:54 General: Alert, Oriented x3, Cooperative, No apparent distress HEENT: Atraumatic Extremities: No cyanosis, Capillary Refill Less than 3 Seconds, No Calf Tenderness, Diminished Peripheral Pulses Skin: Ulcer/ Wound - No purulence, erythema, string, odor, infection. Adjacent skin is atrophic Wound Measurements and Assessment WC - Nurse 1 - General Ulcer Measurement Start: 10/15/20 10:14 Freq: Status: Active Protocol: Activity Type Activity Date Activity User E-Sign Co-Sign Detail Recorded Client Recorded Date Recorded By Document 10/29/20 10:54 RB [id number] 10/29/20 10:58 RB 10/29/20 10:54 Wound Center Nurse 1 [Ulcer Assessment] 4. R foot plantar -Combined with other wound No -Current Size (cm) - Length 0.1 -Current Size (cm) - Width 0.1 -Current Size (cm) - Depth 0.1 -Total Square Cm 0.01 -Tunneling No -Undermining/Tunneling No -Circular Undermining No -Exudate Amt Small -Exudate Type Serosanguineous -Wound Margin Flat & Intact -Granulation Amt Large (67-100%) -Granulation Quality [place] -Slough/Fibrin Yes -Necrosis Amt Small (1-33%) -Necrotic Tissue Type Adherent Slough -Structure Exposed N/A -Texture (Roz-wound Skin Appearance) Assessed,Callus -Moisture (Roz-wound Skin Appearance Assessed ) -Color (Roz-wound Skin Appearance) Assessed -Temperature (Roz-wound Skin No Abnormality Appearance) (Pt Warm) -Tenderness on Palpation (Roz-wound No Skin Appearance) -Ulcer Cleansing Wound Cleanser -Foul Odor after Cleansing No -Anesthetic Used 4% Lidocaine Solution Musculoskeletal: Muscle Wasting Neurological: - - Altered Psych/Mental Status: Normal Affect, Appropriate Debridement Note Post-Debridement Measurements/Treatment WC - Nurse 2 - General Ulcer CM Notes Start: 10/15/20 10:14 Freq: Status: Active Protocol: Activity Type Activity Date Activity User E-Sign Co-Sign Detail Recorded Client Recorded Date Recorded By Document 10/15/20 10:43 ALPHONSO [id number] 10/15/20 10:55 ALPHONSO 10/15/20 10:43 Wound Center Nurse 2 4. R foot plantar -Time 10:44 -Correct Patient Yes -Correct Side, Site, Position Yes -Correct Procedure Yes -Procedure Performed Yes -Type of Procedure Debridement -Clinical Debridement Subcutaneous -Tissue Removed Subcutaneous -Post Debridement (cm) - Length 0.5 -Post Debridement (cm) - Width 0.7 -Post Debridement (cm) - Depth 0.4 -Total Square (Post) (cm) 0.35 -Area of Debridement (cm) - Length 0.5 -Area of Debridement (cm) - Width 0.7 -Total Square (Area) (cm) 0.35 -Tunneling No -Undermining/Tunneling No -Circular Undermining No -Wound/Ulcer Outcome Not Healed -Ulcer Cleansing Rinsed/ Irrigated with Saline -Foul Odor after Cleansing No -Bioengineered Tissue No -Bleeding Controlled with Pressure -Offloading Yes -Type of Offloading Surgical Shoe -Treatment Response Procedure Tolerated Well -Debridement - Subq, 1st 20sq cm Yes Pain Scale: 0-10 Numeric Is Patient Pain Free? Yes - Nurse 3 - General Ulcer D/C NN Start: 10/15/20 10:14 Freq: Status: Active Protocol: Activity Type Activity Date Activity User E-Sign Co-Sign Detail Recorded Client Recorded Date Recorded By Document 10/15/20 11:18 RB [id number] 10/15/20 11:19 RB 10/15/20 11:18 Wound Care Nurse 3 4. R foot plantar -Primary Dressing Applied Promogran Josette Matter -Primary Dressing Covered/Secured with Dry Gauze, Secured with Tape -Promogran Josette Matter 1 Right -Lotion applied to leg before No compression wrap -Tubular Bandage Single Layer -Size of Tubigrip Used Size E -Size E ($) 1 Treatment Response Procedure Tolerated Well Vital Signs Blood Pressure (90/60-120/80) 150/80 H Blood Pressure Mean (mm Hg) 103 Source Monitor Position Sitting Blood Pressure Location Left Arm Pain Scale: 0-10 Numeric Is Patient Pain Free? Yes Teaching: Wound Center Dressing Your Wound -Person Taught Patient -Teaching Method Discussion, Demonstration -Response to teaching Verbalize understanding WC - Visit Discharge Discharge Condition Stable Ambulatory Status Ambulatory Transportation Private Auto Medication Reconcilliation completed & No provided to patient/care provider Clinical Summary of Care Provided Yes Wound debrided: hallux Laterality: Right Type of Debridement: Excisional debridement Anesthesia Used: 5% Lidocaine Gel Depth: in the subcutaneous layer Percentage of wound debrided: 100 Instrument Used: #15 blade Tissue Removed: fibrous, devitalized subcutaneous, biofilm, slough Severity: Fat Layer Exposed Amount of bleeding with debridement: Mild Bleeding Controlled with: Pressure Patient tolerated procedure well Assessment/Plan Clinical Impression(s) from Imaging Studies Foot X-Ray 10/15/20 11:50 IMPRESSION: Status post partial second toe amputation. No erosive changes. 2-3 mm retained soft tissue foreign body along the plantar aspect of the foot. Degenerative changes, as described above. Electronically Signed: Billy Morocho MD at 20:06 EDT Tel , Service support , Extremity Arterial Study 10/27/20 12:39 Interpretation Summary Triphasic Doppler waveforms are noted at ankle level bilaterally. Pulse-volume recordings appear satisfactory at all levels bilaterally. Resting ankle-brachial indices are normal biaterally. Digital-brachial indices are mildly diminished bilaterally. Arterial flow appears normal at ankle level bilaterally. There is evidence of mild, distal, small- vessel arterial occlusive disease in the lower extremities bilaterally. Ordering Physician: Carolina Roblero Referring Physician: Obey Wagner Performed By: Bernadette Pitts RVT Venous Doppler Study 10/27/20 12:39 Interpretation Summary Deep veins of the lower extremities are bilaterally patent and compressible segmentally. There is no evidence of deep vein thrombosis on either side. Valvular competence appears intact within the proximal deep venous systems bilaterally. The great saphenous veins appear bilaterally patent and compressible segmentally. Sapheno-femoral junctions are bilaterally competent . The right great saphenous vein appears competent above the knee. The right great saphenous vein appears incompetent below the knee. The left great saphenous vein appears segmentally competent. The right small saphenous vein is patent and competent. The left small saphenous vein is patent and incompetent. An incompetent finishing operator vein is noted in the right calf, located 19 centimeters proximal to the medial malleolus. The left accessory saphenous vein in the left mid-calf is incompetent. Ordering Physician: Carolina Roblero Referring Physician: Obey Wagner Performed By: Bernadette Pitts RVT Active Problems Idiopathic neuropathy (Chronic) Delayed wound healing (Chronic) Ulcer of right foot with fat layer exposed (Chronic) Assessment: Right foot ulcer with fat layer exposed. Hallux limitus. Vascular insufficiency work-up in process Plan: I reviewed his case. Reviewed the ordered diagnostic data after clinic. Subcutaneous excisional debridement was performed as noted in the clinical panel. upon debridement there is no ulcer appreciated or any other signs of infection noted. Patient was instructed to continue wearing his offloading cam walker boot instead of offloading insoles or surgical shoe to take additional pressure off of this site. A prescription was previously provided to obtain this at the foot and ankle center. Additional dual density Plastizote offloading liners with a pocket at the ulcer site will be incorporated. The importance of keeping pressure off of these areas was again stressed, especially because the patient has some idiopathic neuropathy. Patient was instructed and educated on the importance of daily foot checks due to his neuropathy, in order to catch any issues with his feet as soon as possible. To change the dressing daily as he has been doing. To wash with soap and water. X-rays were ordered and reviewed without any osseous destruction or acute fracture dislocation adjacent to the ulcer site. No soft tissue emphysema is noted. There is foreign body of a thin metallic object which does not appear to be deep in the forefoot and is proximal to the clinical area of the ulcer location. His labs were also reviewed which did not demonstrate any gross CMP abnormalities. He did not have leukocytosis and his white blood cell count was 7.9. His A1c was 5.2% and it does not appear that he has diabetes. I also provided an order for noninvasive vascular studies for screening due to recurrent nature of this ulcer. He appears to have overall normal perfusion to the ankle level with some diminished digital indices suggesting small vessel disease. I recommend a vascular surgery referral to see if there are any intervention options available due to his continued delays in healing. I also recommend Tubigrip application for mild edema management. Importance of well-balanced proper nutrition and supplementation was also advised to optimize healing. I recommend Maurilio supplementation. I answered all his questions. He will return to clinic in 1 week or call sooner if he has any questions or concerns. Note: [employer] speech recognition design printer balloon software was used to create portions of this document. Sound-alike and misspelled words, as well as other design printer balloon errors may be contained in the documentation.
[2020-11-05 10:45] VITALS: BP 146/69; PULSE 73; RESP 20; TEMP 36.9; BMI 35.9
--- NOTE | 2020-11-05 16:01 | PCM.PROGNOTE ---
Subjective Subjective: This 64-year-old male is following up for right foot ulcer which is draining rash. He performed strict offloading. He thinks the top of his right great toe rubbed on and she has a new ulcer. He denies fever, chill, nausea, vomiting. She denies redness streaking, or odor. Objective Data Objective Data Vital Signs: Vital Signs Temp Pulse Resp BP 98.4 F 73 20 H 146/69 H 11/05/20 10:45 11/05/20 10:45 11/05/20 10:45 11/05/20 10:45 Weight: 113.398 kg Body Mass Index (BMI) 35.9 Finger Stick Blood Glucose 92 Lab / Micro Data Result Diagrams: 10/15/20 11:36 10/15/20 11:36 Physical Exam Const alert and oriented x3 General Appearance: cooperative HEENT normocephalic Extremity normal capillary refill Extremity Narrative: no cyanosis, no calf tenderness, diminished pulses muscle wasting noted. no tenderness. General Extremity: edema Skin Skin Narrative: no purulence, no erythema, no streaking, no odor, no infection. Adjacent skin is atrophic. New skin discontinuity dorsal hallux at the medial interphalangeal joint level with fibrous and granular base. Only subhemorrhagic tissue that exposed to the plantar foot ulcer and this is reduced in size and depth. Neuro Neuro Narrative: lack of normal epicritic sensation via light touch consistent with neuropathy Assessment & Plan Assessment/Plan (1) Ulcer of right foot with fat layer exposed: Status: Chronic Code(s): L97.512 - Non-pressure chronic ulcer of other part of right foot with fat layer exposed (2) Idiopathic neuropathy: Status: Chronic Code(s): G60.9 - Hereditary and idiopathic neuropathy, unspecified (3) Delayed wound healing: Status: Chronic Code(s): T14.8XXD - Other injury of unspecified body region, subsequent encounter (4) Hallux malleus of right foot: Status: Acute Code(s): M20.31 - Hallux varus (acquired), right foot Plan: Procedure- Location: dorsal right hallux (new) Excisional debridement performed Anesthesia: 5% lidocaine plain Debridement layer: subcutaneous Amount of debridement: 100% Instrumentation used: 15 blade Tissue debrided: fibrous, devitalized subcutaneous, biofilm, slough Exposed tissue: fat layer Bleeding: mild Hemostasis controlled: pressure The patient tolerated the procedure well Procedure- Location: plantar medial forefoot selective debridement performed Anesthesia: 5% lidocaine plain Debridement layer: skin layer only Amount of debridement: 100% Instrumentation used: 15 blade Tissue debrided: fibrous, devitalized subcutaneous, biofilm, slough Exposed tissue: fat layer Bleeding: mild Hemostasis controlled: pressure The patient tolerated the procedure well I reviewed and discussed his case.? Reviewed the ordered diagnostic data after clinic.? Subcutaneous excisional debridement was performed as noted in the clinical nursing panel; refer to nursing document for pre and post debridement measurements. Upon debridement there is no ulcer appreciated or any other signs of infection noted. Patient was instructed to continue wearing his offloading cam walker boot instead of offloading insoles or surgical shoe to take additional pressure off of this site.? Additional dual density Plastizote offloading liners with a pocket at the ulcer site will be incorporated.? He has a new ulcer and this was offloaded with a felt aperture pad. To monitor closely. The importance of keeping pressure off of these areas was again stressed, especially because the patient has some idiopathic neuropathy.? Patient was instructed and educated on the importance of daily foot checks due to his neuropathy, in order to catch any issues with his feet as soon as possible.? To change the dressing daily as he has been doing.? To wash with soap and water.? X-rays were ordered and reviewed without any osseous destruction or acute fracture dislocation adjacent to the ulcer site.? No soft tissue emphysema is noted.? There is foreign body of a thin metallic object which does not appear to be deep in the forefoot and is proximal to the clinical area of the ulcer location.? His labs were also reviewed which did not demonstrate any gross CMP abnormalities.? He did not have leukocytosis and his white blood cell count was 7.9.? His A1c was 5.2% and it does not appear that he has diabetes.? I also provided an order for noninvasive vascular studies for screening due to recurrent nature of this ulcer.? He appears to have overall normal perfusion to the ankle level with some diminished digital indices suggesting small vessel disease.? I recommend a vascular surgery referral to see if there are any intervention options available due to his continued delays in healing.? I also recommend Tubigrip application for mild edema management.? Importance of well-balanced proper nutrition and supplementation was also advised to optimize healing.? I recommend Maurilio supplementation.? I answered all his questions.? He will return to clinic in 1 week or call sooner if he has any questions or concerns.? Note: [employer] speech recognition director geophysical laboratory software was used to create portions of this document. Sound-alike and misspelled words, as well as other director geophysical laboratory errors may be contained in the documentation. The medical decision making level is low. There is noted low risk of morbidity after considering this treatment plan and diagnostic data. The problems addressed require a low medical decision making level which includes two or more minor problems, a stable chronic illness, or an acute uncomplicated illness or injury.
== END 2020-11-07 23:59 ==
LOC: WC 10:30
PROVIDERS: PCP Family Medicine; Referring Provider Podiatrist; Visit Provider Podiatrist
DX: I83.015 Varicose veins of right lower extremity with ulcer other part of foot (principal); L97.512 Non-pressure chronic ulcer of other part of right foot with fat layer exposed; M20.5X1 Other deformities of toe(s) (acquired), right foot; G60.9 Hereditary and idiopathic neuropathy, unspecified; I77.9 Disorder of arteries and arterioles, unspecified; I73.9 Peripheral vascular disease, unspecified; I87.2 Venous insufficiency (chronic) (peripheral); M20.31 Hallux varus (acquired), right foot; Z79.82 Long term (current) use of aspirin; Z79.899 Other long term (current) drug therapy
CPT/HCPCS: 11042; 36415; 73630; 80053; 83036; 85025; 93923; 93970; 97597; 99213; G0463

== ENCOUNTER 2020-11-26 08:45 | Outpatient (RCR) | payer MEDICARE, SELFPAY ==
[2020-11-08 00:15] VITALS: BP 146/69; PULSE 73; RESP 20; TEMP 36.9
[2020-11-12 11:23] VITALS: BP 133/64; PULSE 66; RESP 18; TEMP 36.1; BMI 35.9
--- NOTE | 2020-11-12 12:12 | PCM.WC.PN ---
History of Present Illness Date of Service: 11/12/20 Chief Complaint: ulcer to right plantar hallux History of Wound: This 62-year-old male was referred to the wound healing center by Dr. Rivera for an ongoing ulcer to the right foot. He says he has been treated with offloading surgical shoes as well as offloading custom orthotics and daily hydrogel dressings. He says that he has noticed improvement each day and feels that the ulcer may actually be healed today due to lack of drainage with dressing changes. The new ulcer to the dorsal aspect of the great toe continues to drain. He used the aperture pads for 1 day. He denies any purulence to the area as well as any redness, swelling, or increase in warmth. The patient currently denies any feelings of nausea, vomiting, fever, chills. Progress of Wound: Healed plantar foot ulcer Stable dorsal toe ulcer Objective Data Objective Data Vital Signs: Vital Signs Temp Pulse Resp BP 97 F L 66 18 133/64 H 11/12/20 11:23 11/12/20 11:23 11/12/20 11:23 11/12/20 11:23 Weight: 113.398 kg Body Mass Index (BMI) 35.9 Finger Stick Blood Glucose 92 Assessment & Plan Assessment/Plan (1) Hallux malleus of right foot: Status: Acute Code(s): M20.31 - Hallux varus (acquired), right foot (2) Idiopathic neuropathy: Status: Chronic Code(s): G60.9 - Hereditary and idiopathic neuropathy, unspecified (3) Ulcer of right foot with fat layer exposed: Status: Chronic Code(s): L97.512 - Non-pressure chronic ulcer of other part of right foot with fat layer exposed (4) Delayed wound healing: Status: Chronic Code(s): T14.8XXD - Other injury of unspecified body region, subsequent encounter Plan: I reviewed and discussed his case. Subcutaneous excisional debridement was performed as noted in the clinical nursing panel; refer to nursing document for pre and post debridement measurements. Upon debridement there is no ulcer appreciated or any other signs of infection noted to the plantar foot. Debridement was performed to the dorsal hallux as noted. Patient was instructed to continue wearing his offloading cam walker boot instead of offloading insoles or surgical shoe to take additional pressure off of this site. Additional dual density Plastizote offloading liners with a pocket at the ulcer site will be incorporated to allow skin remodeling on that this ulcer site is healed. He has a newer ulcer and this was offloaded with a felt aperture pad. To monitor closely. The importance of keeping pressure off of these areas was again stressed, especially because the patient has some idiopathic neuropathy. Patient was instructed and educated on the importance of daily foot checks due to his neuropathy, in order to catch any issues with his feet as soon as possible. To change the dressing daily as he has been doing; hydrogel. To wash with soap and water. X-rays were ordered and reviewed without any osseous destruction or acute fracture dislocation adjacent to the ulcer site. No soft tissue emphysema is noted. There is foreign body of a thin metallic object which does not appear to be deep in the forefoot and is proximal to the clinical area of the ulcer location. His labs were also reviewed which did not demonstrate any gross CMP abnormalities. He did not have leukocytosis and his white blood cell count was 7.9. His A1c was 5.2% and it does not appear that he has diabetes. I also provided an order for noninvasive vascular studies for screening due to recurrent nature of this ulcer. He appears to have overall normal perfusion to the ankle level with some diminished digital indices suggesting small vessel disease. I recommend a vascular surgery referral to see if there are any intervention options available due to his continued delays in healing. I also recommend Tubigrip application for mild edema management. Importance of well-balanced proper nutrition and supplementation was also advised to optimize healing. I recommend Maurilio supplementation. I answered all his questions. He will return to clinic in 1 week or call sooner if he has any questions or concerns. Note: Real Time Translation speech recognition prosthetic lab technician software was used to create portions of this document. Sound-alike and misspelled words, as well as other prosthetic lab technician errors may be contained in the documentation. Physical Exam Const alert and oriented x3 General Appearance: cooperative HEENT normocephalic Extremity Extremity Narrative: No calf tenderness Diminished pulses Muscle wasting noted Rigid dorsal contraction of hallux consistent with hallux malleus General Extremity: edema and no tenderness to palpation of joints or extremities; Negative for cyanosis Skin Skin Narrative: no purulence, no streaking, no odor, no infection. Plantar ulcer has full epithelialization is healed. Dorsal ulcer has a fibrous granular base with no exposed deep tissue.. Adjacent skin is hairless and atrophic General Skin Exam: Negative for erythema Neuro Neuro Narrative: lack of normal epicritic sensation via light touch is consistent with neuropathy status Psych cooperative and affect normal Debridement Note Debridement Note Post-Debridement Measurements and Additional Note: Post-Debridement Measurements/Treatment [predebridement measurement dorsal right hallux 4 x 5 x 1 mm] WC - Nurse 2 - General Ulcer CM Notes Start: 11/12/20 11:23 Freq: Status: Active Protocol: Activity Type Activity Date Activity User E-Sign Co-Sign Detail Recorded Client Recorded Date Recorded By Document 11/12/20 11:52 [id number] 11/12/20 11:59 11/12/20 11:52 Wound Center Nurse 2 #5 R Grt Toe -Time 11:53 -Correct Patient Yes -Correct Side, Site, Position Yes -Correct Procedure Yes -Procedure Performed Yes -Type of Procedure Debridement -Clinical Debridement Subcutaneous -Tissue Removed Subcutaneous -Post Debridement (cm) - Length 0.5 -Post Debridement (cm) - Width 0.6 -Post Debridement (cm) - Depth 0.1 -Total Square (Post) (cm) 0.30 -Area of Debridement (cm) - Length 0.5 -Area of Debridement (cm) - Width 0.6 -Total Square (Area) (cm) 0.30 -Tunneling No -Undermining/Tunneling No -Circular Undermining No -Wound/Ulcer Outcome Not Healed -Ulcer Cleansing Rinsed/ Irrigated with Saline -Foul Odor after Cleansing No -Bioengineered Tissue No -Bleeding Controlled with Pressure -Offloading Yes -Type of Offloading Camwalker -Treatment Response Procedure Tolerated Well -Debridement - Subq, 1st 20sq cm Yes 4. R foot plantar -Correct Patient No -Correct Side, Site, Position No -Correct Procedure No -Procedure Performed No -Post Debridement (cm) - Length 0 -Post Debridement (cm) - Width 0 -Post Debridement (cm) - Depth 0 -Total Square (Post) (cm) 0 -Area of Debridement (cm) - Length 0 -Area of Debridement (cm) - Width 0 -Total Square (Area) (cm) 0 -Wound/Ulcer Outcome Healed- Epithelialized Pain Scale: 0-10 Numeric Is Patient Pain Free? Yes WC - Nurse 3 - General Ulcer D/C NN Start: 11/12/20 11:23 Freq: Status: Active Protocol: Activity Type Activity Date Activity User E-Sign Co-Sign Detail Recorded Client Recorded Date Recorded By Document 11/12/20 12:11 NATA [id number] 11/12/20 12:11 NATA 11/12/20 12:11 Wound Care Nurse 3 #5 R Grt Toe -Ulcer Cleansing Rinsed/ Irrigated with Saline -Foul Odor after Cleansing No -Other Dressing hydrogel -Primary Dressing Covered/Secured with Dry Gauze & Roll Gauze, Secured with Tape Treatment Response Procedure Tolerated Well WC - Visit Discharge Discharge Condition Stable Ambulatory Status Ambulatory Transportation Private Auto Wound debrided: dorsal hallux right Wound Grade/Stage: 1 Type of Debridement: Excisional debridement Anesthesia Used: 4% Lidocaine Solution Depth: in the subcutaneous layer Percentage of wound debrided: 100 Instrument Used: #15 blade Tissue Removed: fibrous, devitalized subcutaneous, biofilm, slough Severity: Fat Layer Exposed Amount of bleeding with debridement: Mild Bleeding Controlled with: Pressure Patient tolerated procedure: Patient tolerated procedure well
[2020-11-19 10:41] VITALS: BP 122/68; PULSE 65; RESP 18; TEMP 36.8; BMI 35.9
--- NOTE | 2020-11-19 11:12 | PN.PCM_ITS ---
History of Present Illness Date of Service: 11/19/20 Chief Complaint: ulcer to right dorsal hallux History of Wound: This 64-year-old male was referred to the wound healing center by Dr. Rivera for an ongoing ulcer to the right foot. He says he has been treated with offloading surgical shoes as well as offloading custom orthotics and daily hydrogel dressings. He says that he has noticed improvement each day and his ulcer has remained healed. The newer ulcer to the dorsal aspect of the great toe continues to drain. He reports the aperture pads helped. He denies any nausea, vomiting, fever, chills. Progress of Wound: Healed plantar foot ulcer Improved dorsal toe ulcer Objective Data Objective Data Vital Signs: Vital Signs Temp Pulse Resp BP 98.3 F 65 18 122/68 H 11/19/20 10:41 11/19/20 10:41 11/19/20 10:41 11/19/20 10:41 Weight: 113.398 kg Body Mass Index (BMI) 35.9 Finger Stick Blood Glucose 92 Assessment & Plan Assessment/Plan (1) Hallux malleus of right foot: (2) Idiopathic neuropathy: (3) Ulcer of right foot with fat layer exposed: (4) Delayed wound healing: PLAN: I reviewed and discussed his case. Subcutaneous excisional debridement was performed as noted. Upon debridement there is no ulcer appreciated or any other signs of infection noted to the plantar foot. Debridement was performed to the dorsal hallux as noted. Patient was instructed to continue wearing his offloading cam walker boot instead of offloading insoles or surgical shoe to take additional pressure off of this site. Additional dual density Plastizote offloading liners with a pocket at the ulcer site will be inc orporated to allow skin remodeling on that this ulcer site is healed. He has a newer ulcer and this was offloaded with a felt aperture pad; redispensed today. To monitor closely. The importance of keeping pressure off of these areas was again stressed, especially because the patient has some idiopathic neuropathy. Patient was instructed and educated on the importance of daily foot checks due t o his neuropathy, in order to catch any issues with his feet as soon as possible. To change the dressing daily as he has been doing; hydrogel. To wash with soap and water. X-rays were ordered and reviewed without any osseous destruction or acute fracture dislocation adjacent to the ulcer site. No soft tissue emphysema is noted. There is foreign body of a thin metallic object which does not appear to be deep in the forefoot and is proximal to the clinical area of the ulcer location. His labs were also reviewed which did not demonstrate any gross CMP abnormalities. He did not have leukocytosis and his white blood cell count was 7.9. His A1c was 5.2% and it does not appear that he has diabetes. I also provided an order for noninvasive vascular studies for screening due to recurrent nature of this ulcer. He appears to have overall normal perfusion to the ankle level with some diminished digital indices suggesting small vessel disease. I recommend a vascular surgery referral to see if there are any intervention options available due to his continued delays in healing. I also recommend Tubigrip application for mild edema management. Importance of well-balanced proper nutrition and supplementation was also advised to optimize healing. I recommend Maurilio supplementation. I answered all his questions. He will return to clinic in 1 week or call sooner if he has any questions or concerns. Note: [employer] speech recognition community coordinator for high school software was used to create portions of this document. Sound-alike and misspelled words, as well as other community coordinator for [employer] errors may be contained in the documentation. Physical Exam Const alert and oriented x3 General Appearance: cooperative HEENT normocephalic Extremity Extremity Narrative: No calf tenderness Diminished pulses Muscle wasting noted Rigid dorsal contraction of hallux consistent with hallux malleus General Extremity: edema and no tenderness to palpation of joints or extremities; Negative for cyanosis Skin Skin Narrative: no purulence, no streaking, no odor, no infection. Plantar ulcer has full epithelialization is healed. Dorsal ulcer has a fibrous granular base with no exposed deep tissue; peripheral epithelialization noted. Adjacent skin is hairless and atrophic General Skin Exam: Negative for erythema Neuro Neuro Narrative: lack of normal epicritic sensation via light touch is consistent with neuropathy status Psych cooperative and affect normal Debridement Note Debridement Note Post-Debridement Measurements and Additional Note: Post-Debridement Measurements/Treatment YURY - Nurse 1 - General Ulcer Assessment Start: 11/12/20 11:23 Freq: Status: Active Protocol: PATRICK Activity Type Activity Date Activity User E-Sign Co-Sign Detail Recorded Client Recorded Date Recorded By Document 11/12/20 11:23 RB [id number] 11/12/20 11:31 RB Document 11/19/20 10:41 RB [id number] 11/19/20 10:47 RB 11/12/20 11/19/20 11:23 10:41 - Today's Visit Information Type of service Follow-up Visit Follow-up Visit (Physician/WEAPONS MECHANIC (Physician/WEAPONS MECHANIC ) ) Arrival Mode Ambulatory Ambulatory Transfer Assistance None None Patient Identification Verified (Name & Yes Yes ) Patient Requires Transmission-Based No No Precautions Height and Weight Body Mass Index (BMI) 35.9 35.9 BMI Classification Obese Obese Vital Signs Temperature (97.8 F-99.1 F) 97 F L 98.3 F Temperature Source Temporal Temporal Pulse Rate (60-100) 66 65 Pulse Location Monitor Monitor Respiratory Rate (12-18) 18 18 Respiratory rate source Observation Observation Blood Pressure (90/60-120/80) 133/64 H 122/68 H Blood Pressure Mean (mm Hg) 87 86 Source Monitor Monitor Position Semi-Fowlers Semi-Fowlers Blood Pressure Location Left Arm Left Arm History Since Last Visit- (Skip if this is Patient's initial visit) Have you changed medications since your No No last visit? Any new allergies or adverse reactions No No Had a fall/change in ADL's that may No No increase risk of falls Signs or symptoms of abuse and/or No No neglect since last visit Have you been in the hospital since your No No last visit? Has dressing in place as prescribed Yes Yes Has compression in place as prescribed No No Has offloadiing in place as prescribed Yes Yes Experienced any changes in pain level or No No management Left Footwear Regular Shoe Regular Shoe Right Footwear Surgical Shoe Surgical Shoe with pressure with pressure relief insole relief insole Pain Scale: 0-10 Numeric Is Patient Pain Free? Yes Yes - Nurse 1 - General Ulcer Measurement Start: 11/12/20 11:23 Freq: Status: Active Protocol: Activity Type Activity Date Activity User E-Sign Co-Sign Detail Recorded Client Recorded Date Recorded By Document 11/12/20 11:23 RB [id number] 11/12/20 11:31 RB Document 11/19/20 10:41 RB [id number] 11/19/20 10:47 RB 11/12/20 11/19/20 11:23 10:41 Wound Center Nurse 1 #5 R Grt Toe -Combined with other wound No No -Current Size (cm) - Length 0.5 0.1 -Current Size (cm) - Width 0.5 0.2 -Current Size (cm) - Depth 0.1 0.1 -Total Square Cm 0.25 0.02 -Tunneling No No -Undermining/Tunneling No No -Circular Undermining No -Exudate Amt Small Small -Exudate Type Serosanguineous Serosanguineous -Wound Margin Flat & Intact Flat & Intact -Granulation Amt Medium (34-66%) Medium (34-66%) -Granulation Quality [place] -Slough/Fibrin Yes Yes -Necrosis Amt Small (1-33%) Small (1-33%) -Necrotic Tissue Type Adherent Slough Adherent Slough -Structure Exposed N/A N/A -Texture (Roz-wound Skin Appearance) Callus Callus -Moisture (Roz-wound Skin Appearance) Assessed Assessed -Color (Roz-wound Skin Appearance) Assessed Assessed -Temperature (Roz-wound Skin No Abnormality No Abnormality Appearance) (Pt Warm) (Pt Warm) -Tenderness on Palpation (Roz-wound No No Skin Appearance) -Ulcer Cleansing Wound Cleanser Wound Cleanser -Foul Odor after Cleansing No No -Anesthetic Used 4% Lidocaine 4% Lidocaine Solution Solution 4. R foot plantar -Combined with other wound No -Current Size (cm) - Length 0.1 -Current Size (cm) - Width 0.1 -Current Size (cm) - Depth 0.1 -Total Square Cm 0.01 -Epithelialization None Present -Tunneling No -Undermining/Tunneling No -Circular Undermining No -Exudate Amt None Present -Wound Margin Flat & Intact -Granulation Amt Large (67-100%) -Granulation Quality [place] -Slough/Fibrin No -Necrosis Amt None Present (0 %) -Structure Exposed N/A -Texture (Roz-wound Skin Appearance) Callus -Moisture (Roz-wound Skin Appearance) Assessed -Color (Roz-wound Skin Appearance) Assessed -Temperature (Roz-wound Skin No Abnormality Appearance) (Pt Warm) -Tenderness on Palpation (Roz-wound No Skin Appearance) -Ulcer Cleansing Wound Cleanser -Foul Odor after Cleansing No -Anesthetic Used 4% Lidocaine Solution WC - Nurse 2 - General Ulcer CM Notes Start: 11/12/20 11:23 Freq: Status: Active Protocol: Activity Type Activity Date Activity User E-Sign Co-Sign Detail Recorded Client Recorded Date Recorded By Document 11/12/20 11:52 [id number] 11/12/20 11:59 JF Document 11/19/20 10:56 [id number] 11/19/20 11:00 JF 11/12/20 11/19/20 11:52 10:56 Wound Center Nurse 2 #5 R Grt Toe -Time 11:53 10:57 -Correct Patient Yes Yes -Correct Side, Site, Position Yes Yes -Correct Procedure Yes Yes -Procedure Performed Yes Yes -Type of Procedure Debridement Debridement -Clinical Debridement Subcutaneous Subcutaneous -Tissue Removed Subcutaneous Subcutaneous -Post Debridement (cm) - Length 0.5 0.3 -Post Debridement (cm) - Width 0.6 0.1 -Post Debridement (cm) - Depth 0.1 0.1 -Total Square (Post) (cm) 0.30 0.03 -Area of Debridement (cm) - Length 0.5 0.3 -Area of Debridement (cm) - Width 0.6 0.1 -Total Square (Area) (cm) 0.30 0.03 -Tunneling No No -Undermining/Tunneling No No -Circular Undermining No No -Wound/Ulcer Outcome Not Healed Not Healed -Ulcer Cleansing Rinsed/ Rinsed/ Irrigated with Irrigated with Saline Saline -Foul Odor after Cleansing No No -Bioengineered Tissue No No -Bleeding Controlled with Pressure NA -Offloading Yes Yes -Type of Offloading Camwalker Surgical Shoe -Treatment Response Procedure Procedure Tolerated Well Tolerated Well -Debridement - Subq, 1st 20sq cm Yes Yes 4. R foot plantar -Correct Patient No -Correct Side, Site, Position No -Correct Procedure No -Procedure Performed No -Post Debridement (cm) - Length 0 -Post Debridement (cm) - Width 0 -Post Debridement (cm) - Depth 0 -Total Square (Post) (cm) 0 -Area of Debridement (cm) - Length 0 -Area of Debridement (cm) - Width 0 -Total Square (Area) (cm) 0 -Wound/Ulcer Outcome Healed- Epithelialized Pain Scale: 0-10 Numeric Is Patient Pain Free? Yes Yes WC - Nurse 3 - General Ulcer D/C NN Start: 11/12/20 11:23 Freq: Status: Active Protocol: Activity Type Activity Date Activity User E-Sign Co-Sign Detail Recorded Client Recorded Date Recorded By Document 11/12/20 12:11 NATA [id number] 11/12/20 12:11 DL Document 11/19/20 11:00 [id number] 11/19/20 11:01 JF 11/12/20 11/19/20 12:11 11:00 Wound Care Nurse 3 #5 R Grt Toe -Ulcer Cleansing Rinsed/ Rinsed/ Irrigated with Irrigated with Saline Saline -Foul Odor after Cleansing No No -Primary Dressing Applied C Hydrogel ($) -Other Dressing hydrogel -Primary Dressing Covered/Secured with Dry Gauze & Dry Gauze, Roll Gauze, Secured with Secured with Tape Tape Treatment Response Procedure Tolerated Well Pain Scale: 0-10 Numeric Is Patient Pain Free? Yes WC - Visit Discharge Discharge Condition Stable Stable Ambulatory Status Ambulatory Ambulatory Transportation Private Auto Private Auto Medication Reconcilliation completed & Yes provided to patient/care provider Clinical Summary of Care Provided Yes Wound debrided: dorsal hallux right Wound Grade/Stage: Type of Debridement: Excisional debridement Anesthesia Used: 4% Lidocaine Solution Depth: in the subcutaneous layer Percentage of wound debrided: 100 Instrument Used: #15 blade Tissue Removed: fibrous, devitalized subcutaneous, biofilm, slough Severity: Fat Layer Exposed Amount of bleeding with debridement: Mild Bleeding Controlled with: Pressure Patient tolerated procedure: Patient tolerated procedure well
[2020-11-26 08:41] VITALS: BP 134/66; PULSE 72; RESP 18; TEMP 36.8; BMI 35.9
--- NOTE | 2020-11-26 22:15 | PN.PCM_ITS ---
History of Present Illness Date of Service: 11/29/20 Chief Complaint: ulcer to right dorsal hallux History of Wound: This 64-year-old male was referred to the wound healing center by Dr. Rivera for an ongoing ulcer to the right foot. He denies any nausea, vomiting, fever, chills. Progress of Wound: Healed plantar foot ulcer Improved dorsal toe ulcer Objective Data Objective Data Vital Signs: Vital Signs Temp Pulse Resp BP 98.2 F 72 18 134/66 H 11/26/20 08:41 11/26/20 08:41 11/26/20 08:41 11/26/20 08:41 Weight: 113.398 kg Body Mass Index (BMI) 35.9 Physical Exam Const alert and oriented x3 General Appearance: cooperative HEENT normocephalic Extremity Extremity Narrative: No calf tenderness Diminished pulses Muscle wasting noted Rigid dorsal contraction of hallux consistent with hallux malleus General Extremity: edema and no tenderness to palpation of joints or extremities; Negative for cyanosis Skin Skin Narrative: no purulence, no streaking, no odor, no infection. Plantar ulcer has full epithelialization is healed. Dorsal ulcer has a fibrous granular base with no exposed deep tissue; peripheral epithelialization noted. Adjacent skin is hairless and atrophic General Skin Exam: Negative for erythema Neuro Neuro Narrative: lack of normal epicritic sensation via light touch is consistent with neuropathy status Psych cooperative and affect normal Debridement Note Debridement Note Post-Debridement Measurements and Additional Note: Post-Debridement Measurements/Treatment - Nurse 1 - General Ulcer Assessment Start: 11/12/20 11:23 Freq: Status: Active Protocol: [email or web address] Activity Type Activity Date Activity User E-Sign Co-Sign Detail Recorded Client Recorded Date Recorded By Document 11/12/20 11:23 RB [id number] 11/12/20 11:31 RB Document 11/19/20 10:41 RB [id number] 11/19/20 10:47 RB Document 11/26/20 08:41 RB [id number] 11/26/20 08:43 RB 11/12/20 11/19/20 11/26/20 11:23 10:41 08:41 - Today's Visit Information Type of service Follow-up Visit Follow-up Visit Follow-up Visit (Physician/EVENT SALES ASSISTANT (Physician/EVENT SALES ASSISTANT (Physician/EVENT SALES ASSISTANT ) ) ) Arrival Mode Ambulatory Ambulatory Ambulatory Transfer Assistance None None None Patient Identification Verified (Name & Yes Yes Yes ) Patient Requires Transmission-Based No No No Precautions Height and Weight Body Mass Index (BMI) 35.9 35.9 35.9 BMI Classification Obese Obese Obese Vital Signs Temperature (97.8 F-99.1 F) 97 F L 98.3 F 98.2 F Temperature Source Temporal Temporal Temporal Pulse Rate (60-100) 66 65 72 Pulse Location Monitor Monitor Monitor Respiratory Rate (12-18) 18 18 18 Respiratory rate source Observation Observation Observation Blood Pressure (90/60-120/80) 133/64 H 122/68 H 134/66 H Blood Pressure Mean (mm Hg) 87 86 88 Source Monitor Monitor Monitor Position Semi-Fowlers Semi-Fowlers Semi-Fowlers Blood Pressure Location Left Arm Left Arm Left Arm History Since Last Visit- (Skip if this is Patient's initial visit) Have you changed medications since your No No No last visit? Any new allergies or adverse reactions No No No Had a fall/change in ADL's that may No No No increase risk of falls Signs or symptoms of abuse and/or No No No neglect since last visit Have you been in the hospital since your No No No last visit? Has dressing in place as prescribed Yes Yes Yes Has compression in place as prescribed No No No Has offloadiing in place as prescribed Yes Yes No Experienced any changes in pain level or No No No management Left Footwear Regular Shoe Regular Shoe Regular Shoe Right Footwear Surgical Shoe Surgical Shoe Regular Shoe with pressure with pressure relief insole relief insole Pain Scale: 0-10 Numeric Is Patient Pain Free? Yes Yes Yes WC - Nurse 1 - General Ulcer Measurement Start: 11/12/20 11:23 Freq: Status: Active Protocol: Activity Type Activity Date Activity User E-Sign Co-Sign Detail Recorded Client Recorded Date Recorded By Document 11/12/20 11:23 RB [id number] 11/12/20 11:31 RB Document 11/19/20 10:41 RB [id number] 11/19/20 10:47 RB Document 11/26/20 08:41 RB [id number] 11/26/20 08:43 RB 11/12/20 11/19/20 11/26/20 11:23 10:41 08:41 Wound Center Nurse 1 #5 R Grt Toe -Combined with other wound No No No -Current Size (cm) - Length 0.5 0.1 0.1 -Current Size (cm) - Width 0.5 0.2 0.1 -Current Size (cm) - Depth 0.1 0.1 0.1 -Total Square Cm 0.25 0.02 0.01 -Epithelialization Large 67-100% -Tunneling No No No -Undermining/Tunneling No No No -Circular Undermining No No -Exudate Amt Small Small None Present -Exudate Type Serosanguineous Serosanguineous -Wound Margin Flat & Intact Flat & Intact -Granulation Amt Medium (34-66%) Medium (34-66%) Large (67-100%) -Granulation Quality Floydada Floydada Floydada -Slough/Fibrin Yes Yes Yes -Necrosis Amt Small (1-33%) Small (1-33%) Small (1-33%) -Necrotic Tissue Type Adherent Slough Adherent Slough Adherent Slough -Structure Exposed N/A N/A N/A -Texture (Roz-wound Skin Appearance) Callus Callus Callus -Moisture (Roz-wound Skin Appearance) Assessed Assessed Assessed -Color (Roz-wound Skin Appearance) Assessed Assessed Assessed -Temperature (Roz-wound Skin No Abnormality No Abnormality No Abnormality Appearance) (Pt Warm) (Pt Warm) (Pt Warm) -Tenderness on Palpation (Roz-wound No No No Skin Appearance) -Ulcer Cleansing Wound Cleanser Wound Cleanser Wound Cleanser -Foul Odor after Cleansing No No No -Anesthetic Used 4% Lidocaine 4% Lidocaine 4% Lidocaine Solution Solution Solution 4. R foot plantar -Combined with other wound No -Current Size (cm) - Length 0.1 -Current Size (cm) - Width 0.1 -Current Size (cm) - Depth 0.1 -Total Square Cm 0.01 -Epithelialization None Present -Tunneling No -Undermining/Tunneling No -Circular Undermining No -Exudate Amt None Present -Wound Margin Flat & Intact -Granulation Amt Large (67-100%) -Granulation Quality [place] -Slough/Fibrin No -Necrosis Amt None Present (0 %) -Structure Exposed N/A -Texture (Roz-wound Skin Appearance) Callus -Moisture (Roz-wound Skin Appearance) Assessed -Color (Roz-wound Skin Appearance) Assessed -Temperature (Roz-wound Skin No Abnormality Appearance) (Pt Warm) -Tenderness on Palpation (Roz-wound No Skin Appearance) -Ulcer Cleansing Wound Cleanser -Foul Odor after Cleansing No -Anesthetic Used 4% Lidocaine Solution WC - Nurse 2 - General Ulcer CM Notes Start: 11/12/20 11:23 Freq: Status: Active Protocol: Activity Type Activity Date Activity User E-Sign Co-Sign Detail Recorded Client Recorded Date Recorded By Document 11/12/20 11:52 [id number] 11/12/20 11:59 Document 11/19/20 10:56 [id number] 11/19/20 11:00 Document 11/26/20 09:21 [id number] 11/26/20 09:24 11/12/20 11/19/20 11/26/20 11:52 10:56 09:21 Wound Center Nurse 2 #5 R Grt Toe -Time 11:53 10:57 09:21 -Correct Patient Yes Yes Yes -Correct Side, Site, Position Yes Yes Yes -Correct Procedure Yes Yes Yes -Procedure Performed Yes Yes Yes -Type of Procedure Debridement Debridement Debridement -Clinical Debridement Subcutaneous Subcutaneous Subcutaneous -Tissue Removed Subcutaneous Subcutaneous Subcutaneous -Post Debridement (cm) - Length 0.5 0.3 0.3 -Post Debridement (cm) - Width 0.6 0.1 0.1 -Post Debridement (cm) - Depth 0.1 0.1 0.1 -Total Square (Post) (cm) 0.30 0.03 0.03 -Area of Debridement (cm) - Length 0.5 0.3 0.3 -Area of Debridement (cm) - Width 0.6 0.1 0.1 -Total Square (Area) (cm) 0.30 0.03 0.03 -Tunneling No No No -Undermining/Tunneling No No No -Circular Undermining No No No -Wound/Ulcer Outcome Not Healed Not Healed Not Healed -Ulcer Cleansing Rinsed/ Rinsed/ Rinsed/ Irrigated with Irrigated with Irrigated with Saline Saline Saline -Foul Odor after Cleansing No No No -Bioengineered Tissue No No No -Bleeding Controlled with Pressure NA Pressure -Offloading Yes Yes No -Type of Offloading Camwalker Surgical Shoe -Treatment Response Procedure Procedure Procedure Tolerated Well Tolerated Well Tolerated Well -Debridement - Subq, 1st 20sq cm Yes Yes Yes 4. R foot plantar -Correct Patient No -Correct Side, Site, Position No -Correct Procedure No -Procedure Performed No -Post Debridement (cm) - Length 0 -Post Debridement (cm) - Width 0 -Post Debridement (cm) - Depth 0 -Total Square (Post) (cm) 0 -Area of Debridement (cm) - Length 0 -Area of Debridement (cm) - Width 0 -Total Square (Area) (cm) 0 -Wound/Ulcer Outcome Healed- Epithelialized Pain Scale: 0-10 Numeric Is Patient Pain Free? Yes Yes Yes - Nurse 3 - General Ulcer D/C NN Start: 11/12/20 11:23 Freq: Status: Active Protocol: Activity Type Activity Date Activity User E-Sign Co-Sign Detail Recorded Client Recorded Date Recorded By Document 11/12/20 12:11 DL [id number] 11/12/20 12:11 DL Document 11/19/20 11:00 JF [id number] 11/19/20 11:01 JF Document 11/26/20 09:24 JF [id number] 11/26/20 09:25 JF 11/12/20 11/19/20 11/26/20 12:11 11:00 09:24 Wound Care Nurse 3 #5 R Grt Toe -Ulcer Cleansing Rinsed/ Rinsed/ Rinsed/ Irrigated with Irrigated with Irrigated with Saline Saline Saline -Foul Odor after Cleansing No No No -Primary Dressing Applied C Hydrogel ($) C Hydrogel ($) -Other Dressing hydrogel -Primary Dressing Covered/Secured with Dry Gauze & Dry Gauze, Dry Gauze, Roll Gauze, Secured with Secured with Secured with Tape Tape Tape Treatment Response Procedure Tolerated Well Pain Scale: 0-10 Numeric Is Patient Pain Free? Yes Yes - Visit Discharge Discharge Condition Stable Stable Stable Ambulatory Status Ambulatory Ambulatory Ambulatory Transportation Private Auto Private Auto Private Auto Medication Reconcilliation completed & Yes Yes provided to patient/care provider Clinical Summary of Care Provided Yes Yes Wound debrided: dorsal right hallux Wound Grade/Stage: Type of Debridement: Excisional debridement Anesthesia Used: 4% Lidocaine Solution Depth: in the subcutaneous layer Percentage of wound debrided: 100 Instrument Used: #15 blade Tissue Removed: fibrous, devitalized subcutaneous, biofilm, slough Severity: Fat Layer Exposed Amount of bleeding with debridement: Mild Bleeding Controlled with: Pressure Patient tolerated procedure: Patient tolerated procedure well Assessment/Plan Assessment/Plan (1) Hallux malleus of right foot: CODE(S): Code(s): M20.31 - Hallux varus (acquired), right foot (2) Idiopathic neuropathy: CODE(S): Code(s): G60.9 - Hereditary and idiopathic neuropathy, unspecified (3) Ulcer of right foot with fat layer exposed: CODE(S): Code(s): L97.512 - Non-pressure chronic ulcer of other part of right foot with fat layer exposed (4) Delayed wound healing: CODE(S): Code(s): T14.8XXD - Other injury of unspecified body region, subsequent encounter PLAN: I reviewed and discussed his case. Subcutaneous excisional debridement was performed as noted. Upon debridement there is no ulcer appreciated or any other signs of infection noted to the plantar foot. Debridement was performed to the dorsal hallux as noted. Patient was instructed to continue wearing his offloading cam walker boot instead of offloading insoles or surgical shoe to take additional pressure off of this site. Additional dual density Plastizote offloading liners with a pocket at the ulcer site will be incorporated to allow skin remodeling on that this ulcer site is healed. To continue apeture offloading pad. To change the dressing daily as he has been doing; hydrogel. To wash with soap and water. X-rays were ordered and reviewed without any osseous destruction or acute fracture dislocation adjacent to the ulcer site. No soft tissue emphysema is noted. There is foreign body of a thin metallic object which does not appear to be deep in the forefoot and is proximal to the clinical area of the ulcer location. His labs were also reviewed which did not demonstrate any gross CMP abnormalities. He did not have leukocytosis and his white blood cell count was 7.9. His A1c was 5.2% and it does not appear that he has diabetes. I also provided an order for noninvasive vascular studies for screening due to recurrent nature of this ulcer. He appears to have overall normal perfusion to the ankle level with some diminished digital indices suggesting small vessel disease. I recommend a vascular surgery referral to see if there are any intervention options available due to his continued delays in healing. I also recommend Tubigrip application for mild edema management. Importance of well-balanced proper nutrition and supplementation was also advised to optimize healing. I recommend Maurilio supplementation. I answered all his questions. He will return to clinic in 1 - 2 weeks or call sooner if he has any questions or concerns. Note: [employer] speech recognition chemical process project engineer software was used to create portions of this document. Sound-alike and misspelled words, as well as other chemical process project engineer errors may be contained in the documentation.
== END 2020-12-08 23:59 ==
LOC: WC 08:45
PROVIDERS: PCP Family Medicine; Referring Provider Podiatrist; Visit Provider Podiatrist
DX: L97.512 Non-pressure chronic ulcer of other part of right foot with fat layer exposed (principal); M20.31 Hallux varus (acquired), right foot; G60.9 Hereditary and idiopathic neuropathy, unspecified; E66.9 Obesity, unspecified; Z68.35 Body mass index [BMI] 35.0-35.9, adult; Z79.82 Long term (current) use of aspirin; Z79.899 Other long term (current) drug therapy
CPT/HCPCS: 11042

== ENCOUNTER 2020-12-10 08:00 | Outpatient (RCR) | payer MEDICARE, SELFPAY ==
[2020-12-09 00:09] VITALS: BP 134/66; PULSE 72; RESP 18; TEMP 36.8
[2020-12-10 08:02] VITALS: BP 168/78; PULSE 86; RESP 16; TEMP 36.6; BMI 35.9
--- NOTE | 2020-12-10 10:13 | PN.PCM_ITS ---
History of Present Illness Date of Service: 12/10/20 Chief Complaint: ulcer to right dorsal hallux History of Wound: This 64-year-old male was referred to the wound healing center for an ongoing ulcer to the right foot. He denies any nausea, vomiting, fever, chills. He denies drainage and thinks the ulcer is healed. He has transition to new balance shoes for the past 2 weeks. Progress of Wound: Healed Objective Data Objective Data Vital Signs: Vital Signs Temp Pulse Resp BP 98 F 86 16 168/78 H 12/10/20 08:02 12/10/20 08:02 12/10/20 08:02 12/10/20 08:02 Oxygen Delivery Method Room Air Weight: 113.398 kg Body Mass Index (BMI) 35.9 Physical Exam Const alert and oriented x3 General Appearance: cooperative HEENT normocephalic Extremity Extremity Narrative: No calf tenderness Diminished pulses Muscle wasting noted General Extremity: edema and no tenderness to palpation of joints or extremities; Negative for cyanosis Skin Skin Narrative: no purulence, no streaking, no odor, no infection. Full epithelialization is noted to dorsal right hallux and plantar metatarsal head. The sites have healed. No drainage. Skin is atrophic and hairless General Skin Exam: Negative for erythema Neuro Neuro Narrative: lack of normal epicritic sensation via light touch is consistent with neuropathy status Psych cooperative and affect normal Assessment/Plan Assessment/Plan (1) Ulcer of right foot with fat layer exposed: CODE(S): L97.512 - Non-pressure chronic ulcer of other part of right foot with fat layer exposed (2) Hallux malleus of right foot: CODE(S): M20.31 - Hallux varus (acquired), right foot (3) Idiopathic neuropathy: CODE(S): G60.9 - Hereditary and idiopathic neuropathy, unspecified PLAN: I reviewed and discussed his case. Debridement was not performed because the ulcer is healed today. Callus was debrided with a 15 blade scalpel without incident after verbal consent; this was tolerated. He is transition extra-depth new balance shoes and he was advised to continue this. To discontinue dressing care. To wash foot with soap and water and dry well. To keep adjacent skin integrity intact with lotion application daily. His prior labs were also reviewed which did not demonstrate any gross CMP abnormalities. He did not have leukocytosis and his white blood cell count was 7.9. His A1c was 5.2% and it does not appear that he has diabetes. I also provided an order for noninvasive vascular studies for screening due to recurrent nature of this ulcer. He appears to have overall normal perfusion to the ankle level with some diminished digital indices suggesting small vessel disease. To continue Tubigrip application for mild edema management. He is discharged from the wound healing center at this time and will follow up at the foot and ankle Center for palliative care and risk assessments with Dr. Rivera. Note: [employer] speech recognition bank teller machine mechanic software was used to create portio ns of this document. Sound-alike and misspelled words, as well as other bank teller machine mechanic errors may be contained in the documentation. The medical decision making level is low. There is noted low risk of morbidity after considering this treatment plan and diagnostic data. The problems addressed require a low medical decision making level which includes two or more minor problems, a stable chronic illness, or an acute uncomplicated illness or injury.
== END 2020-12-10 08:29 | disposition home or self-care (01) ==
LOC: WC 08:00
PROVIDERS: PCP Family Medicine; Referring Provider Podiatrist; Visit Provider Podiatrist
DX: Z09 Encounter for follow-up examination after completed treatment for conditions other than malignant neoplasm (principal); M20.31 Hallux varus (acquired), right foot; G60.9 Hereditary and idiopathic neuropathy, unspecified; Z79.82 Long term (current) use of aspirin; Z79.899 Other long term (current) drug therapy
CPT/HCPCS: 99213; G0463

== ENCOUNTER → 2021-02-09 08:31 | Outpatient (CLI) | payer MEDICARE, SELFPAY ==
[2021-02-09 10:27] LABS: Anion Gap 4 (5-15); BUN 27 mg/dL (7-18); BUN/Creat Ratio 35.8 RATIO (10-20); Calcium,Total 9.1 mg/dL (8.5-10.1); Chloride 104 mmol/L (98-107); Cholesterol 181 mg/dL (200); Creatinine, Serum 0.75 mg/dL (0.70-1.30); EST Glomerular Filtration Rate 110 mL/min (>60); Est Glom Filt Rate - Afr Amer 134 mL/min (>60); Glucose 105 mg/dL (74-106); High Density Lipoprotein 41 mg/dL; Potassium 3.8 mmol/L (3.5-5.1); Sodium Level 134 mmol/L (136-145); Triglycerides 165 mg/dL; Very Low Density Lipoprotein 33 mg/dL (5-40)
== END ==
PROVIDERS: PCP Family Medicine; Referring Provider Family Medicine; Visit Provider Family Medicine
DX: I10 Essential (primary) hypertension (principal)
CPT/HCPCS: 36415; 80048; 80061

== ENCOUNTER 2021-08-12 08:45 | Outpatient (CLI) | payer MEDICARE, SELFPAY ==
[2021-08-12 10:38] LABS: Anion Gap 7 (5-15); BUN 32 mg/dL (7-18); BUN/Creat Ratio 38.5 RATIO (10-20); Calcium,Total 9.1 mg/dL (8.5-10.1); Chloride 104 mmol/L (98-107); Creatinine, Serum 0.83 mg/dL (0.70-1.30); EST Glomerular Filtration Rate 98 mL/min (>60); Est Glom Filt Rate - Afr Amer 119 mL/min (>60); Glucose 117 mg/dL (74-106); Potassium 3.8 mmol/L (3.5-5.1); Sodium Level 137 mmol/L (136-145)
== END 2021-08-12 23:59 | disposition short-term general hospital (02) ==
LOC: MFPLAB 08:47
PROVIDERS: PCP Family Medicine; Referring Provider Family Medicine; Visit Provider Family Medicine
DX: I10 Essential (primary) hypertension (principal)
CPT/HCPCS: 36415; 80048

== ENCOUNTER → 2022-02-11 | Outpatient (CLI) | payer MEDICARE, SELFPAY ==
[2022-02-11 10:55] LABS: Anion Gap 4 (5-15); BUN 27 mg/dL (7-18); BUN/Creat Ratio 37.2 RATIO (10-20); Calcium,Total 8.6 mg/dL (8.5-10.1); Chloride 105 mmol/L (98-107); Cholesterol 201 mg/dL (200); Creatinine, Serum 0.72 mg/dL (0.70-1.30); EST Glomerular Filtration Rate 115 mL/min (>60); Est Glom Filt Rate - Afr Amer 139 mL/min (>60); Glucose 89 mg/dL (74-106); High Density Lipoprotein 37 mg/dL; Potassium 4.4 mmol/L (3.5-5.1); Sodium Level 137 mmol/L (136-145); Triglycerides 171 mg/dL; Very Low Density Lipoprotein 34 mg/dL (5-40)
== END | disposition home or self-care (01) ==
LOC: MFPLAB 08:50
PROVIDERS: PCP Family Medicine; Referring Provider Family Medicine; Visit Provider Family Medicine
DX: Z00.00 Encounter for general adult medical examination without abnormal findings (principal); E78.00 Pure hypercholesterolemia, unspecified
CPT/HCPCS: 36415; 80048; 80061

== ENCOUNTER → 2022-08-16 | Outpatient (CLI) | payer MEDICARE, SELFPAY ==
[2022-08-16 10:48] LABS: Anion Gap 7 (5-15); BUN 23 mg/dL (7-18); Calcium,Total 9.1 mg/dL (8.5-10.1); Chloride 104 mmol/L (98-107); Creatinine, Serum 0.89 mg/dL (0.70-1.30); EST Glomerular Filtration Rate 91 mL/min (>60); Est Glom Filt Rate - Afr Amer 110 mL/min (>60); Glucose 110 mg/dL (74-106); Sodium Level 136 mmol/L (136-145)
== END | disposition home or self-care (01) ==
PROVIDERS: PCP Family Medicine; Referring Provider Family Medicine; Visit Provider Family Medicine
DX: I10 Essential (primary) hypertension (principal)
CPT/HCPCS: 36415; 80048

== ENCOUNTER → 2023-03-01 | Outpatient (CLI) | payer MEDICARE, SELFPAY ==
[2023-03-01 10:18] LABS: Anion Gap 9 (5-15); BUN 29 mg/dL (7-18); Calcium,Total 9.2 mg/dL (8.5-10.1); Chloride 101 mmol/L (98-107); Cholesterol 174 mg/dL (200); EST Glomerular Filtration Rate 79 mL/min (>60); Est Glom Filt Rate - Afr Amer 96 mL/min (>60); Glucose 99 mg/dL (74-106); High Density Lipoprotein 34 mg/dL; Sodium Level 136 mmol/L (136-145); Triglycerides 146 mg/dL; Very Low Density Lipoprotein 29 mg/dL (5-40)
== END | disposition home or self-care (01) ==
LOC: MFPLAB 08:13
PROVIDERS: PCP Family Medicine; Visit Provider Family Medicine
DX: I10 Essential (primary) hypertension (principal)
CPT/HCPCS: 36415; 80048; 80061

== ENCOUNTER → 2023-08-22 | Outpatient (CLI) | payer MEDICARE, SELFPAY ==
[2023-08-22 12:24] LABS: Anion Gap 4 (5-15); BUN 18 mg/dL (7-18); Calcium,Total 9.3 mg/dL (8.5-10.1); Chloride 100 mmol/L (98-107); Cholesterol 196 mg/dL (200); Creatinine, Serum 0.82 mg/dL (0.70-1.30); EST Glomerular Filtration Rate 100 mL/min (>60); Est Glom Filt Rate - Afr Amer 121 mL/min (>60); Glucose 95 mg/dL (74-106); High Density Lipoprotein 39 mg/dL; PSA,Total - Annual Screen 0.82 ng/mL (0.00-4.00); Potassium 3.9 mmol/L (3.5-5.1); Sodium Level 136 mmol/L (136-145); Triglycerides 156 mg/dL; Very Low Density Lipoprotein 31 mg/dL (5-40)
== END | disposition home or self-care (01) ==
LOC: MFPLAB 09:00
PROVIDERS: PCP Family Medicine; Visit Provider Family Medicine
DX: Z12.5 Encounter for screening for malignant neoplasm of prostate (principal); E66.9 Obesity, unspecified
CPT/HCPCS: 36415; 80048; 80061; 84153; G0103

== ENCOUNTER → 2024-03-01 | Outpatient (CLI) | payer MEDICARE, SELFPAY ==
[2024-03-01 12:38] LABS: ALB/GLOB Ratio 1.1 RATIO (0.9-2.4); AST(SGOT) 21 U/L (15-37); Alanine Aminotransfer ALT/SGPT 24 U/L (16-61); Albumin, Serum 3.8 g/dL (3.2-5.0); Alkaline Phosphatase 54 U/L (45-117); Anion Gap 8 (5-15); BUN 32 mg/dL (7-18); BUN/Creat Ratio 35.8 RATIO (10-20); Calcium,Total 9.5 mg/dL (8.5-10.1); Chloride 105 mmol/L (98-107); Cholesterol 194 mg/dL (200); EST Glomerular Filtration Rate 90 mL/min (>60); Est Glom Filt Rate - Afr Amer 109 mL/min (>60); Globulin 3.5 g/dL (2.2-4.2); Glucose 110 mg/dL (74-106); High Density Lipoprotein 41 mg/dL; Potassium 3.9 mmol/L (3.5-5.1); Protein, Total 7.3 g/dL (6.4-8.2); Sodium Level 139 mmol/L (136-145); Triglycerides 97 mg/dL; Very Low Density Lipoprotein 19 mg/dL (5-40)
== END | disposition home or self-care (01) ==
LOC: MFPLAB 09:35
PROVIDERS: PCP Family Medicine; Visit Provider Family Medicine
DX: I10 Essential (primary) hypertension (principal)
CPT/HCPCS: 36415; 80053; 80061

== ENCOUNTER → 2024-08-30 | Outpatient (CLI) | payer BC, SELFPAY ==
[2024-08-30 10:50] LABS: ALB/GLOB Ratio 1.1 RATIO (0.9-2.4); AST(SGOT) 22 U/L (15-37); Alanine Aminotransfer ALT/SGPT 28 U/L (16-61); Albumin, Serum 3.8 g/dL (3.2-5.0); Alkaline Phosphatase 56 U/L (45-117); Anion Gap 6 (5-15); BUN 39 mg/dL (7-18); BUN/Creat Ratio 44.6 RATIO (10-20); Calcium,Total 9.6 mg/dL (8.5-10.1); Chloride 104 mmol/L (98-107); Cholesterol 195 mg/dL (200); Creatinine, Serum 0.88 mg/dL (0.70-1.30); EST Glomerular Filtration Rate 92 mL/min (>60); Est Glom Filt Rate - Afr Amer 111 mL/min (>60); Globulin 3.6 g/dL (2.2-4.2); Glucose 103 mg/dL (74-106); High Density Lipoprotein 45 mg/dL; Protein, Total 7.4 g/dL (6.4-8.2); Sodium Level 138 mmol/L (136-145); Triglycerides 86 mg/dL; Very Low Density Lipoprotein 17 mg/dL (5-40)
== END | disposition home or self-care (01) ==
LOC: MFPLAB 08:39
PROVIDERS: PCP Family Medicine; Referring Provider Family Medicine; Visit Provider Family Medicine
DX: I10 Essential (primary) hypertension (principal)
CPT/HCPCS: 36415; 80053; 80061

== ENCOUNTER → 2025-02-28 | Outpatient (CLI) | payer BC, SELFPAY ==
[2025-02-28 10:43] LABS: Anion Gap 12 (5-15); BUN 30 mg/dL (4-19); BUN/Creat Ratio 38.5 RATIO (10-20); Calcium,Total 9.3 mg/dL (7.6-11.0); Carbon Dioxide 24.4 mmol/L (21.0-32.0); Chloride 100 mmol/L (98-108); Glucose 99 mg/dL (70-99); Potassium 4.2 mmol/L (3.3-5.1)
== END | disposition home or self-care (01) ==
LOC: MFPLAB 08:31
PROVIDERS: PCP Family Medicine; Referring Provider Family Medicine; Visit Provider Family Medicine
DX: I10 Essential (primary) hypertension (principal)
CPT/HCPCS: 36415; 80048